=== PATIENT | male | born 1940 | race Caucasian/White ===

== ENCOUNTER 2016-12-03 02:11 | Emergency (ER) | payer OTHER ==
[~2016-12-03] VITALS: Ht 180.3 cm; Wt 88.0 kg
[~2016-12-03 02:11] MED LIST: FINA5TAB PO; LISI20TA3 PO; MELO15TA4 PO; MTR500 PO; MULT-506 PO; OMEG10007 PO; ZNTT/150 PO
[2016-12-03 02:15] VITALS: Ht 180.3 cm; Wt 88.0 kg
[2016-12-03] MEDS ORDERED: SODIUM CHLORIDE 0.9% 1000ML 1,000 ML IV STA (02:16)
[2016-12-03] MEDS ORDERED: PRAZ5CAP2 PO (02:18)
[2016-12-03] MEDS ORDERED: NITROGLYCERIN 0.4 MG SL PER TAB CHARGE ONE (02:22)
--- NOTE | 2016-12-03 02:25 | EMERGENCY ROOM VISIT NOTE ---
History Report prepared by Chichi: Chucky Fitzpatrick Under the Supervision of: Dr. Krysta Nunez M.D. First contact with patient: 02:10 Chief Complaint: CARDIAC ASSESSMENT Stated Complaint: CARDIAC ASSESSMENT History of Present Illness The patient is a 76 year old male who presents to the Emergency Room via [facility] with complaints of left sided neck pain that began roughly 30 minutes prior to arrival. EMS were called at 0141. Per EMS the patient was complaining of pain in the left side of the neck that was radiating up into the jaw, as well as pain in the bilateral upper back. He rated this pain as a 9/10 in severity. He did not have any chest pain or shortness of breath at anytime. The patient notes that he has had the pain intermittently for the past two days, but not to this severity. The patient has a history of hypertension and high cholesterol. He has no diabetic history. He received 4 baby Aspiring via EMS prior to arrival. 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 A total of 10 systems reviewed and were otherwise negative. Past Medical & Surgical Medical Problems: (1) Benign prostatic hypertrophy (2) Dyslipidemia (3) GERD (gastroesophageal reflux disease) (4) Hypertension Family History Alzheimer's disease FATHER Heart disease FATHER Hypertension BROTHER BROTHER Social History Smoking Status: Former Smoker Marital Status: Housing Status: lives with significant other Occupation Status: retired Current/Historical Medications Scheduled Fish Oil ([place]-3), 1,000 MG PO BID Lisinopril (Prinivil), 20 MG PO DAILY Meloxicam (Mobic), 15 MG PO DAILY Multivitamin (Multivitamin), 1 TAB PO DAILY Prazosin Hcl (Prazosin), 5 MG PO DAILY Ranitidine (Zantac), 150 MG PO BID Allergies Coded Allergies: Corticosteroids (Verified Allergy, Mild, 11/19/14) Physical Exam Vital Signs Date Time Temp Pulse Resp B/P Pulse Ox O2 Delivery O2 Flow Rate FiO2 12/03/16 04:25 81 16 140/60 94 Nasal Cannula 3 12/03/16 04:10 82 16 130/56 94 Nasal Cannula 3 12/03/16 03:55 83 16 142/60 94 Nasal Cannula 3 12/03/16 02:41 36.5 85 15 177/101 96 12/03/16 02:39 85 15 177/101 96 Nasal Cannula 2.0 12/03/16 02:32 90 15 158/110 97 Nasal Cannula 2.0 12/03/16 02:16 86 12/03/16 02:15 96 Room Air 12/03/16 02:15 36.5 86 20 185/109 96 Room Air 12/03/16 02:11 96 Room Air Physical Exam Vital signs reviewed. General: Critically ill appearing, in some distress. Noted to be markedly hypertensive. HEENT: No scleral icterus, PERRLA, neck supple. Atraumatic. Cardiovascular: Regular rate and rhythm, no extra sounds. Pulmonary: Clear to auscultation bilaterally, normal work of breathing. Abdomen: Soft, nontender, nondistended, positive bowel sounds. Musculoskeletal: Atraumatic, no peripheral edema. Extremities: Equal pulses in the bilateral lower extremities. Neurologic: Patient awake alert and oriented x 3, full strength in all 4 extremities. Cranial nerves 2 through 12 grossly intact. Skin: Warm, dry, no rash Medical Decision & Procedures ER Provider Diagnostic Interpretation: Radiology results as stated below per my review and radiologist interpretation: CTA CHEST: No evidence of pulmonary embolus. No thoracic aortic dissection or aneurysm. Centrilobular emphysema is noted. Dependent atelectasis. Coronary artery calcifications. Small hiatal hernia. The gallbladder is surgically absent. No acute osseous abnormality. Radiologist: Ryan Florian MD. Laboratory Results 12/03/16 02:03 Red Blood Count 4.72, Mean Corpuscular Volume 89.8, Mean Corpuscular Hemoglobin 32.8, Mean Corpuscular Hemoglobin Concent 36.6, Mean Platelet Volume 10.9, Neutrophils (%) (Auto) 44.0, Lymphocytes (%) (Auto) 42.7, Monocytes (%) (Auto) 8.4, Eosinophils (%) (Auto) 4.3, Basophils (%) (Auto) 0.4, Neutrophils # (Auto) 2.15, Lymphocytes # (Auto) 2.09, Monocytes # (Auto) 0.41, Eosinophils # (Auto) 0.21, Basophils # (Auto) 0.02 12/03/16 02:03 Test 12/03/16 02:03 12/03/16 02:14 12/03/16 03:27 White Blood Count 4.89 K/uL (4.8-10.8) Red Blood Count 4.72 M/uL (4.7-6.1) Hemoglobin 15.5 g/dL (14.0-18.0) Hematocrit 42.4 % (42-52) Mean Corpuscular Volume 89.8 fL (80-100) Mean Corpuscular Hemoglobin 32.8 pg (25-34) Mean Corpuscular Hemoglobin Concent 36.6 g/dl (32-36) Platelet Count 99 K/uL (130-400) Mean Platelet Volume 10.9 fL (7.4-10.4) Neutrophils (%) (Auto) 44.0 % Lymphocytes (%) (Auto) 42.7 % Monocytes (%) (Auto) 8.4 % Eosinophils (%) (Auto) 4.3 % Basophils (%) (Auto) 0.4 % Neutrophils # (Auto) 2.15 K/uL (1.4-6.5) Lymphocytes # (Auto) 2.09 K/uL (1.2-3.4) Monocytes # (Auto) 0.41 K/uL (0.11-0.59) Eosinophils # (Auto) 0.21 K/uL (0-0.5) Basophils # (Auto) 0.02 K/uL (0-0.2) RDW Standard Deviation 46.5 fL (36.4-46.3) RDW Coefficient of Variation 14.1 % (11.5-14.5) Immature Granulocyte % (Auto) 0.2 % Immature Granulocyte # (Auto) 0.01 K/uL (0.00-0.02) Platelet Estimate DECREASED Prothrombin Time 10.4 SECONDS (9.0-12.0) Prothromb Time International Ratio 1.0 (0.9-1.1) Activated Partial Thromboplast Time 26.4 SECONDS (21.0-31.0) Partial Thromboplastin Ratio 1.0 Est Creatinine Clear Calc Drug Dose 60.8 ml/min Estimated GFR () 75.2 Estimated GFR (Non- 64.9 BUN/Creatinine Ratio 16.4 (10-20) Calcium Level 8.8 mg/dl (8.5-10.1) Total Bilirubin 0.5 mg/dl (0.2-1) Direct Bilirubin 0.1 mg/dl (0-0.2) Aspartate Amino Transf (AST/SGOT) 30 U/L (15-37) Alanine Aminotransferase (ALT/SGPT) 30 U/L (12-78) Alkaline Phosphatase 92 U/L (45-117) Total Creatine Kinase 94 U/L (39-308) Creatine Kinase MB 6.3 ng/ml (0.5-3.6) Creatine Kinase MB Ratio 6.7 (0-3.0) Total Protein 7.5 gm/dl (6.4-8.2) Albumin 4.2 gm/dl (3.4-5.0) Bedside Hemoglobin 14.6 g/dl (14.0-18.0) Bedside Hematocrit 43 % (42-52) Bedside Sodium 141 mEq/L (135-144) Bedside Potassium 3.7 mEq/L (3.3-5.0) Bedside Chloride 104 mEq/L (101-112) Bedside Total CO2 23 mEq/l (24-31) Anion Gap 19.0 mmol/L (16-25) Bedside Blood Urea Nitrogen 19 mg/dl (7-18) Bedside Creatinine 0.9 mg/dl (0.6-1.3) Bedside Glucose (other) 134 mg/dl (70-99) Bedside Ionized Calcium (Mague) 1.22 mmol/l (1.12-1.32) Bedside Troponin I 0.580 ng/ml (0-0.045) Kaolin Activated Coagulation Time 286 SECONDS (94-140) Laboratory results per my review. Medications Administered Medications (Trade) Dose Ordered Sig/Suni Route Start Time Stop Time Status Last Admin Dose Admin Sodium Chloride (Nss 1000ml) 1,000 ml @ 125 mls/hr Q8H STAT IV 12/03/16 02:16 12/03/16 10:15 12/03/16 02:16 125 MLS/HR Heparin Sodium (Porcine) (Heparin Iv Bolus) 10,000 unit STK-MED ONCE .ROUTE 12/03/16 02:39 12/03/16 02:40 DC 12/03/16 02:39 8,000 UNIT Eptifibatide (Integrilin Inj) 40 mg STK-MED ONCE IV 12/03/16 03:11 12/03/16 03:12 DC 12/03/16 03:11 40 MG Eptifibatide (Integrilin Inj) 75 mg STK-MED ONCE IV 12/03/16 03:11 12/03/16 03:12 DC 12/03/16 03:11 75 MG Amiodarone HCL/ Dextrose (Nexterone / D5w) 150 mg STK-MED ONCE .ROUTE 12/03/16 03:14 12/03/16 03:15 DC 12/03/16 03:14 150 MG Amiodarone HCL/ Dextrose (Nexterone / D5w) 360 mg STK-MED ONCE .ROUTE 12/03/16 03:16 12/03/16 03:17 DC 12/03/16 03:16 360 MG ECG Indication: other (Back pain, jaw pain) Rate (beats per minute): 87 Rhythm: normal sinus Findings: ST elevation (Anterior), other (Inferior Reciprocal change) ED Course 0211: Past medical records reviewed. The patient was evaluated in room B1. A complete history and physical examination was performed. 0216: Ordered Sodium Chloride 1000 mL @ 125 mL/hr IV. 0215: Dr. Iniguez has come to see the patient at this time. We discussed the case and reviewed patient radiology studies. He will take the patient to the label paster. Medical Decision Differential diagnosis: Etiologies such as cardiac ischemia, aortic dissection, pulmonary embolism, pneumonia, pneumothorax, musculoskeletal, infections, pericarditis, myocarditis , esophageal rupture, gastrointestinal, as well as others were entertained. This patient was evaluated and appeared to be in significant discomfort. IV access was obtained and laboratory work was drawn. The patient was gently hydrated with normal saline solution. He complained mostly of back and neck pain. Patient has ST elevation on his EKG. He has hypertensive. Patient's troponin is positive. CT scan of the chest was performed to rule out aortic dissection. This study is as above, negative for dissection. Dr. Iniguez from interventional cardiology arrived to evaluate the patient. After reviewing images of the CT scan, he is agreed to take the patient to the catheterization lab for further evaluation. Patient is aware of the plan and agrees. Consults Time Called: 214 Consulting Physician: Dr. Iniguez - Cardiology Returned Call: [address] Dr. Iniguez has come to see the patient at this time. We discussed the case and reviewed patient radiology studies. He will take the patient to the label paster. Impression Primary Impression: Acute ST elevation myocardial infarction (STEMI) Critical Care I have personally spent greater than 30 minutes of critical care time in the direct management of this patient. This includes bedside care, interpretation of diagnostic studies, and testing, discussion with consultants, patient, and family members, and other required patient management activities. This 30 minutes is in excess of all separately billable procedures. Scribe Attestation The scribe's documentation has been prepared under my direction and personally reviewed by me in its entirety. I confirm that the note above accurately reflects all work, treatment, procedures, and medical decision making performed by me. Departure Information Dispostion Admitted as an inpatient Referrals Lorne Martin M.D. (PCP) Patient Instructions [facility] Problem Qualifiers Primary Impression: Acute ST elevation myocardial infarction (STEMI) Involved coronary artery: unspecified coronary artery Qualified Codes: I21.3 - ST elevation (STEMI) myocardial infarction of unspecified site
[2016-12-03 02:29] LABS: ISTAT CREATININE 0.9 mg/dl (0.6-1.3); ISTAT HEMOGLOBIN 14.6 g/dl (14.0-18.0); ISTAT IONIZED CALCIUM 1.22 mmol/l (1.12-1.32)
[2016-12-03 02:36] LABS: PROTHROMBIN TIME (PATIENT) 10.4 SECONDS (9.0-12.0)
[2016-12-03] MEDS ORDERED: FENTANYL CITRATE INJ 50 MCG/1 ML 2 ML VIAL ONE (02:39)
[2016-12-03] MEDS ORDERED: NiCARDipine HCL INJ 2.5 MG/ML 10 ML AMP ONE (02:39)
[2016-12-03] MEDS ORDERED: HEPARIN SOD (PORCINE) 1000 UNIT/ML 10 ML VIAL ONE (02:39)
[2016-12-03] MEDS ORDERED: MIDAZOLAM HCL 1 MG/ML 2ML VIAL ONE (02:39)
[2016-12-03 02:40] LABS: BUN/CREATININE RATIO 16.4 (10-20); CALCIUM 8.8 mg/dl (8.5-10.1); CREATININE 1.1 mg/dl (0.60-1.40); POTASSIUM 3.8 mmol/L (3.5-5.1)
[2016-12-03] MEDS ORDERED: NITROGLYCERIN/D5W 100MCG/ML 20ML SYR ONE (02:40)
[2016-12-03 02:41] VITALS: TEMP 36.5; O2SAT 96
[2016-12-03 02:45] LABS: CKMB/CK RATIO 6.7 (0-3.0); HEMATOCRIT 42.4 % (42-52); MEAN CELL VOLUME 89.8 fL (80-100); MEAN CORPUSCULAR HEMOGLOBIN 32.8 pg (25-34); MEAN CORPUSCULAR HGB CONC 36.6 g/dl (32-36); MEAN PLATELET VOLUME 10.9 fL (7.4-10.4); PLATELET COUNT 99 K/uL (130-400); RED BLOOD COUNT 4.72 M/uL (4.7-6.1); WHITE BLOOD COUNT 4.89 K/uL (4.8-10.8)
[2016-12-03 02:46] LABS: BASO % 0.4 %; BASO ABS # 0.02 K/uL (0-0.2); COMPLETE YES; EOS % 4.3 %; IG% 0.2 %; LYMPH % 42.7 %; LYMPH ABS # 2.09 K/uL (1.2-3.4); MONO % 8.4 %; PLT ESTIMATE DECREASED
[2016-12-03] MEDS ORDERED: OPTIRAY 320 IV PRN (03:00)
[2016-12-03] MEDS ORDERED: EPTIFIBATIDE 2 MG/ML 10 ML VIAL IV ONE (03:11)
[2016-12-03] MEDS ORDERED: EPTIFIBATIDE 0.75 MG/ML 75MG VIAL IV ONE (03:11)
[2016-12-03] MEDS ORDERED: AMIODARONE 150MG / 100ML D5W ONE (03:14)
[2016-12-03] MEDS ORDERED: AMIODARONE HCL INJ 50 MG/ML 3 ML VIAL ONE (03:14)
[2016-12-03] MEDS ORDERED: AMIODARONE 360MG / 200ML D5W ONE (03:16)
[2016-12-03 04:25] VITALS: BP 140/60; PULSE 81; O2SAT 94
--- NOTE | 2016-12-03 04:26 | Procedure Note ---
Pre-Mod Sedation Assessment General Date of Moderate Sedation: Dec 03, 2016. Vital Signs: Vital Signs Past 12 Hours Date Time Temp Pulse Resp B/P Pulse Ox O2 Delivery O2 Flow Rate FiO2 12/03/16 03:55 83 16 142/60 94 Nasal Cannula 3 12/03/16 02:41 36.5 85 15 177/101 96 12/03/16 02:39 85 15 177/101 96 Nasal Cannula 2.0 12/03/16 02:32 90 15 158/110 97 Nasal Cannula 2.0 12/03/16 02:16 86 12/03/16 02:15 96 Room Air 12/03/16 02:15 36.5 86 20 185/109 96 Room Air 12/03/16 02:11 96 Room Air Review Cardiovascular: regular rate, rhythm, no edema Abdomen: normal bowel sounds, non tender Lungs: chest non-tender, lungs clear Airway Class: III Pre-Sedation Airway Assessment Oral Cavity: WNL Able to Visualize Vocal Cords: No Short Thick Neck: No Hx of Sleep Apnea: No Smoking Status: Former Smoker Mallampati Classification: Class III ASA Classification: Class IV Procedure Planning Contraindications-for Mod Sed: None Yes Notes The planned sedation has been discussed with the patient and consent obtained. I have identified the patient, determined the appropriateness of sedation and have assessed the patient immediately prior to the procedure. All medicine(s) and interventions are by my order.
--- NOTE | 2016-12-03 04:27 | Procedure Note ---
Post-Mod Sedation Assessment General Date of Moderate Sedation Dec 03, 2016. Vital Signs: Vital Signs Past 12 Hours Date Time Temp Pulse Resp B/P Pulse Ox O2 Delivery O2 Flow Rate FiO2 12/03/16 03:55 83 16 142/60 94 Nasal Cannula 3 12/03/16 02:41 36.5 85 15 177/101 96 12/03/16 02:39 85 15 177/101 96 Nasal Cannula 2.0 12/03/16 02:32 90 15 158/110 97 Nasal Cannula 2.0 12/03/16 02:16 86 12/03/16 02:15 96 Room Air 12/03/16 02:15 36.5 86 20 185/109 96 Room Air 12/03/16 02:11 96 Room Air Review - Discharge Criteria Vital Signs Stable: Yes Alert/Oriented/Conversant: Yes Returned to Baseline Mental St: Yes Nausea Absent/Minimal: Yes Pain/Discomfort/Absent/Minimal: Yes Normal/Baseline Respirations: Yes Active Bleeding?: No Pt Received D/C Instructions: N/A Prescriptions Given: None Specific Proced. D/C Criteria Distal Pulses Present (Cardiac: Yes Groin site assessed-Card Cath: N/A Voided Prior To Discharge: N/A Discharged Patients Adult Escort/Transportation: Yes
--- NOTE | 2016-12-03 04:53 | Cardiac Catheterization ---
Procedure Note Procedure Date Dec 03, 2016. Pre-Procedure Diagnosis STEMI AUC Score 9 Post-Procedure Diagnosis Severe CAD, Successful PCI, Normal Intracardiac Pressures Procedure(s) Performed Coronary Angiography, Left Heart Cath, PTCA Adjuster Dr. Iniguez Cable Tv Installer(s) Santiago Estimated Blood Loss 20 Medication(s) Heparin, Integrilin, Nitroglycerin, Lidocaine 1% Amiodarone Summary of Findings Indication: STEMI/Heart Alert Access: 6Fr Right Radial Artery Catheters: Ikari 3.5, JR 4 diagnostic Findings: LM - 95% distal left main stenosis involving trifurcation with LAD, ramus, circumflex LAD - Proximal LAD aneurysmal after LM/ostial LAD stenosis. 100% occluded in proximal segment. 95% stenosis in mid segment after 2nd diagonal. 1st diagonal with 70-80% ostial stenosis. Ramus - Ostial involvement of left main stenosis, remainder of vessel is moderate caliber with distal luminal irregularities Circumflex - Ostial involvement of left main stenosis, remainder of vessel is large caliber with distal luminal irregularities. Mild proximal small OM1 disease. OM2 with luminal irregularities. RCA - Dominant, large caliber vessel, 80% stenosis in mid segment. 30-40% stenosis in ostial PDA. LVEDP - 13 -- PCI -- Antithrombotic therapy: Heparin, Integrilin Procedure: LM cannulated with Ikari 3.5 guide BMW wire passed across lesion into distal LAD Prowater wire passed across left main lesion into Ramus LM and proximal LAD lesions predilated with 2.5 compliant balloon. With initial flow patient noted to be be in an accelerated idioventricular rhythm to 120s --> started on amiodarone. Mid LAD predilated with 2.0 compliant balloon LM into ramus and LM into proximal LAD dilated with 3.0 compliant balloon sequentially Post procedure ROCIO 3 flow, chest pain free, ST elevations less pronounced. 50- 60% residual stenosis in distal LM/ostial LAD. Arterial Closure: TR Band Summary: 1. Anterior STEMI 2. Severe multivessel coronary artery disease with distal left main/ trifurcation involvement - Distal LM 95% - Proximal LAD 100% - Mid LAD 95% - Mid RCA 80% 3. Normal intracardiac filling pressure 4. Successful PTCA of left main, proximal to mid LAD with re-established ROCIO 3 flow and resolution of chest pain. Recommendations: With severe, complex distal left main disease feel patient would be best served long-term with bypass surgery. Discussed case with Dr. Santos (Interventional Cardiology) and Dr. Singh ( CT Surgery) at [facility]. They have agreed to accept the patient and tentative plan for bypass later today. Will transfer patient by air from laborer construction or leak gang. At time of transfer patient hemodynamically, electrically stable and chest pain free. Continue integrilin, amiodarone en route. Hemodynamics Rest Ao: 154/86 Final Ao: 148/78 LV: 136/13 Recommendations PCI without planned CABG Specimens None Radiation Exposure (mGy) 2962 Contrast (mls) 150 Fluids (cc crystalloids) 120 Drains none Anesthesia moderate Procedural Complication(s) None Disposition [facility] for CT surgery ACC Data Cardiac Status Clinical evaluation leading to the procedure CAD Presntation: STEMI STEMI or Non-STEMI: Symptom Onset Date/Time: 2:00 Anginal Classification: CCS IV Heart Failure: No, NYHA Class: CCS I Cardiogenic Shock w/in 24Hrs: No Cardiac Arrest w/in 24Hrs: No Imaging studies past 6 months: No Stress studies past 6 months: No Standard Exercise Stress Test: No Stress Echocardiogram: No Stress Testing w/SPECT MPI: No Cardiac CTA: No Coronary Anatomy Dominant: Right Left Main (% Stenosis): Distal (95) LAD (% Stenosis): Proximal (100), Mid (95) D1 (% Stenosis): Ostial (70) RCA (% Stenosis): Mid (80) R PDA (% Stenosis): Ostial (30) Ramus (% Stenosis): Ostial (95) Diagnostic Physician's Name: Jamie Iniguez MD Status: Emergency Closure Device Percutaneous Entry Location: Radial Closure Device: Radial Band Recommendations: CABG PCI Indication: Immediate PCI for STEMI First Noted: First EKG Subsequent EKG Date/Time: 2:12 Lesion Segment Name: LM/Proximal LAD Culprit Artery: Yes Stenosis Prior to Rx (%): 100 Chronic Total Occlusion: No IVUS: No FFR: No Previously Treated Lesion: No Lesion Complexity: High/C Lesion Length (mm): 25 Thrombus Present: Yes Bifurcation Lesion: Yes Guidewire Across Lesion: Yes Guidewire: Stenosis Post-Procedure (%): 50 Post-Procedure ROCIO Flow: 3 Device(s) Deployed: No Intraprocedure Events Significant Dissection: No Perforation: No
--- NOTE | 2016-12-03 07:30 | DIAGNOSTIC IMAGING REPORT ---
CHEST CTA for AORTIC DISSECTION CT DOSE: 777.00 mGy.cm HISTORY: Chest pain. TECHNIQUE: Multiaxial CT images of the chest were performed both before and after the intravenous administration of contrast to evaluate the aorta. Maximal intensity projection images were also obtained. COMPARISON STUDY: Chest 10/12/2013. Chest CT 01/13/2008. FINDINGS: No evidence for an aortic dissection. The ascending thoracic aorta measures up to 4 cm in diameter. The central pulmonary arteries are patent. No pleural or pericardial effusions. No mediastinal or hilar lymphadenopathy. Tiny hiatus hernia. Cholecystectomy. No hepatic or splenic masses. A 6 mm left adrenal gland nodule. Normal right adrenal gland. No fractures within the visualized osseous structures. No pneumothorax. Moderate emphysema. Respiratory motion artifact. Mild interstitial thickening at the lung bases. Mild interlobular septal thickening. IMPRESSION: 1. No evidence for an aortic dissection. 2. Mild interlobular septal thickening. This may represent developing pulmonary edema. 3. Emphysema. 4. The ascending thoracic aorta measures up to 4 cm diameter, unchanged. Electronically signed by: Clem Dixon M.D. 12/03/2016 7:28 AM Dictated Date/Time: 12/03/2016 7:22 AM
== END 2016-12-03 02:41 | disposition admitted as inpatient to this hospital (09) ==
LOC: C.EDB 02:11
DX: I21.3 ST elevation (STEMI) myocardial infarction of unspecified site (principal); I25.10 Atherosclerotic heart disease of native coronary artery without angina pectoris; N40.0 Benign prostatic hyperplasia without lower urinary tract symptoms; E78.5 Hyperlipidemia, unspecified; I10 Essential (primary) hypertension; K21.9 Gastro-esophageal reflux disease without esophagitis; Z87.891 Personal history of nicotine dependence; Z79.82 Long term (current) use of aspirin

== ENCOUNTER → 2017-06-30 | Outpatient (CLI) | payer OTHER ==
[~2017-06-30] MED LIST changes: -FINA5TAB PO; -MTR500 PO; +PRAZ5CAP2 PO
--- NOTE | 2017-06-30 18:20 | ECHOCARDIOGRAM REPORT ---
*NOTICE TO RECEIVING DEMOCRAT AGENCY This information is strictly Confidential and protected under [place] law. [place] law prohibits you from making any further disclosure of this information unless further disclosure is expressly permitted by the written consent of the person to whom it pertains or is authorized by law. A general authorization for the release of medical or other information is not sufficient for this purpose. Hospital accepts no responsibility if the information is made available to any other person, INCLUDING THE PATIENT. Interpretation Summary * Name: RIGOBERTO PELAEZ Study Date: 06/30/2017 12:48 PM * Patient Location: [facility] * : 1940 (M/d/yyyy) Gender: Male Height: 72 in * Age: 76 yrs Ethnicity: CA Weight: 180 lb * Ordering Physician: Jamie Arreaga * Referring Physician: Jamie Arreaga * Performed By: Kristin العلي RDCS * * Reason For Study: STEMI * BSA: 2.0 m2 * -- Conclusions -- * 1. Top-normal left ventricular size with mildly reduced systolic function. Estimated EF 45%. Hypokinesis of the anteroseptum, distal septum, and distal inferior wall. The basal septum and basal to mid inferior wall segments appear to be akinetic. No left ventricular hypertrophy. * 2. The left atrium is mildly dilated. * 3. There is mild mitral regurgitation. * 4. Mild aortic root dilatation. * 5. Technically difficult study, enhanced with IV Definity. * 6. Normal estimated right ventricular systolic pressure; 34 mmHg. * 7. Compared to prior study on 10/12/2013, LV systolic function is now mildly reduced with wall motion abnormalities as described. Procedure Details * A contrast injection of Definity was performed to improve assessment of LV function. * Contrast was injected into an intravenous site in the left arm. * One vial of Definity ultrasound contrast was diluted in normal saline to a total volume of 10 ml. A total of '2' ml of solution was administered during imaging. * Lot # [id number] of Definity utilized for procedure. * Expiration date AUG 04. * The attending nurse who injected the contrast agent was LEESA GARCIA RN. Left Ventricle * Top-normal left ventricular size with mildly reduced systolic function. Estimated EF 45%. Hypokinesis of the anteroseptum, distal septum, and distal inferior wall. The basal septum and basal to mid inferior wall segments appear to be akinetic. No left ventricular hypertrophy. Right Ventricle * The right ventricle is normal in size and function. * The right ventricular systolic function is normal as assessed by tricuspid annular plane systolic excursion (TAPSE) (normal >1.5 cm). Atria * The left atrium is mildly dilated. * Right atrial size is normal. * There is no evidence of atrial septal defect, but resolution does not allow assessment for a patent foramen ovale. Mitral Valve * The mitral valve is grossly normal. * There is no mitral valve stenosis. * There is mild mitral regurgitation. Tricuspid Valve * The tricuspid valve is not well visualized, but is grossly normal. * There is no tricuspid stenosis. * There is mild tricuspid regurgitation. Aortic Valve * The aortic valve is trileaflet. * Aortic valve sclerosis mild, without significant aortic valvular stenosis. * No hemodynamically significant valvular aortic stenosis. * Trace aortic regurgitation. Pulmonic Valve * The pulmonary valve is inadequately visualized, but the Doppler data is adequate for interpretation. * There is no pulmonic valvular stenosis. * There is no significant pulmonary regurgitation. Great Vessels * Mild aortic root dilatation. * Mildly blunted pulmonary venous flow pattern. Pericardium/Pleural * There is no pericardial effusion. Great Vessels * Normal inferior vena cava size and collapsability with sniff indicates a normal right atrial pressure of 3 mmHg Left Ventricular Diastolic Function * Type 2 diastolic dysfunction. MMode 2D Measurements and Calculations IVSd 0.97 cm IVSs 1.3 cm LVIDd 5.1 cm LVIDs 4.0 cm LVPWd 1.1 cm LVPWs 1.8 cm IVS/LVPW 0.87 FS 21.6 % EDV(Teich) 125.6 ml ESV(Teich) 70.9 ml EF(Teich) 43.6 % EDV(cubed) 135.1 ml ESV(cubed) 65.0 ml EF(cubed) 51.9 % % IVS thick 35.5 % % LVPW thick 56.7 % LV mass(C)d 201.5 grams LV mass(C)dI 98.9 grams/m\S\2 LV mass(C)s 243.0 grams LV mass(C)sI 119.3 grams/m\S\2 SV(Teich) 54.7 ml SI(Teich) 26.9 ml/m\S\2 SV(cubed) 70.1 ml SI(cubed) 34.4 ml/m\S\2 Ao root diam 4.6 cm Ao root area 16.4 cm\S\2 LA dimension 4.1 cm LA/Ao 0.90 LVAd ap4 35.3 cm\S\2 LVLd ap4 9.2 cm EDV(MOD-sp4) 116.8 ml EDV(sp4-el) 114.3 ml LVAs ap4 24.4 cm\S\2 LVLs ap4 7.7 cm ESV(MOD-sp4) 67.1 ml ESV(sp4-el) 65.5 ml EF(MOD-sp4) 42.6 % EF(sp4-el) 42.8 % LVAd ap2 35.7 cm\S\2 LVLd ap2 8.5 cm EDV(MOD-sp2) 127.4 ml EDV(sp2-el) 127.7 ml LVAs ap2 23.7 cm\S\2 LVLs ap2 7.1 cm ESV(MOD-sp2) 72.0 ml ESV(sp2-el) 66.8 ml EF(MOD-sp2) 43.5 % EF(sp2-el) 47.7 % LVLd %diff -8.71 % EDV(MOD-bp) 127.8 ml LVLs %diff -7.71 % ESV(MOD-bp) 72.4 ml EF(MOD-bp) 43.3 % SV(MOD-sp4) 49.7 ml SI(MOD-sp4) 24.4 ml/m\S\2 SV(MOD-sp2) 55.4 ml SI(MOD-sp2) 27.2 ml/m\S\2 SV(MOD-bp) 55.4 ml SI(MOD-bp) 27.2 ml/m\S\2 SV(sp4-el) 48.9 ml SI(sp4-el) 24.0 ml/m\S\2 SV(sp2-el) 60.9 ml SI(sp2-el) 29.9 ml/m\S\2 Doppler Measurements and Calculations MV E max sheryl 83.4 cm/sec MV A max sheryl 30.1 cm/sec MV E/A 2.8 MV dec time 0.14 sec Ao V2 max 106.0 cm/sec Ao max PG 4.5 mmHg Ao max PG (full) 2.4 mmHg LV V1 max PG 2.1 mmHg LV V1 max 72.3 cm/sec TR max sheryl 279.8 cm/sec RVSP(TR) 34.3 mmHg RAP systole 3.0 mmHg
== END | disposition home or self-care (01) ==
LOC: C.CPL 12:42
PROVIDERS: ATTEND Internal Medicine Clinical Cardiac Electrophysiology
DX: I21.3 ST elevation (STEMI) myocardial infarction of unspecified site (principal); I34.0 Nonrheumatic mitral (valve) insufficiency; I77.810 Thoracic aortic ectasia

== ENCOUNTER 2024-02-27 20:02 | Inpatient (IN) ==
--- NOTE | 2024-02-27 20:15 | Emergency Department Note ---
Impression & Plan Dementia ED Provider Note Provider: Abel Cruz MD DATE OF SERVICE: 02/27/2024 CHIEF COMPLAINT: Aggressive outbursts, confusion HISTORY OF PRESENT ILLNESS: Patient is a 83-year-old gentleman unfortunate history of dementia, CAD, CKD, and hypertension presenting here today via ambulance from his home. Patient evidently was being aggressive and having outbursts and due to concerns for his safety and the safety of others was brought here for further evaluation. Patient himself unable to give me a good history of what been happening. States he was at work today and thinks it is 2019 but it takes him some time to come up with this date. Reports he lives with his but denies any significant pain. Denies any significant altercations or hallucinations to me. I will write me a lot of details regarding events of today. EMS report that he was having some outburst send he was brought here for further evaluation. Discussed with his friend Claritza who has been living with locally for the past 5 years the situation. She reports he has been declining some for the last several months but particularly today was not himself and was out of sorts. Reports he threatened to walk out and she could not redirect him and she was concerned that he would do something unsafe and she is also 85 and does not feel she can care for him at home. Does that patient's family who lives several hours away have been trying to work on possible memory care placement. She did contact them and they wish for him to be sent to the hospital and cared for until placement can be obtained. PAST MEDICAL HISTORY: As noted above MEDICATIONS: Reviewed home medications SOCIAL HISTORY: Has been living with his friend Claritza PHYSICAL EXAM: GENERAL: alert and oriented to person but not time or events in no acute distress on stretcher. Describes after some time that it might be 2019 and states that he still working Head: normocephalic and atraumatic EYES: No injection, discharge or icterus. PERRL, EOMI. NECK: Trachea midline. Supple. ENT: Mucous membranes pink and moist. Pharynx without erythema or exudate. LUNGS: Airway patent. No retractions. Breath sounds clear with good air entry bilaterally. HEART: Regular rate and rhythm. No chest wall tenderness ABDOMEN: Soft and non-tender, without guarding or rebound. SKIN: Acyanotic, warm, dry, without rashes with occasional upper extremity contusions noted. EXTREMITIES: Without tenderness with 1+ bilateral lower extremity edema without erythema NEUROLOGICAL: No focal deficits. No aphasia. No facial droop or slurred speech. Normal strength and tone in the extremities. Sensation to gross touch normal. Ambulatory. EK bpm normal sinus rhythm. No PVC or PAC. No acute ST segment elevation or depression with some nonspecific T wave changes. QTc 433. CONTINUOUS CARDIAC MONITORING: was ordered and showed a heart rate of 60s bpm in normal sinus rhythm Patient's laboratory studies and imaging reviewed. Differential includes Infection, dehydration, metabolic abnormality, hypo/hyperglycemia, electrolyte disturbance, anemia, hypoxia, cardiac sources, intracerebral event, toxicologic, neurologic, as well as other pathologies. IMPRESSION/MEDICAL DECISION MAKING: Patient denies complaint. History of dementia and oriented to person and birthday but not able to really tell me recent events and confabulating on exam. No trauma history. Additional history from patient's caregiver Claritza/friend who has been living with. Basic blood work EKG and head imaging obtained today given the confusion although seems like possibly more of worsening of his underlying dementia. Blood work here with mild anemia stable from previous but some slightly new leukopenia and thrombocytopenia today. Chemistries here without significant electrolyte abnormality or renal dysfunction. Normal TSH and negative COVID testing. Chest x-ray per radiology question some emphysema and pulmonary vascular congestion with scarring of the lungs. No acute emergent abnormality noted. Given his living conditions and decline with what appears to be more dementia mediated although urinalysis is pending will bring into the hospital for placement. Hospitalist contacted. DIAGNOSIS: Dementia, behavioral disturbance DISPOSITION: Hospitalist will evaluate Past Med/Surg History Problem List (Updated 02/27/24 @ 22:15 by Abel Cruz M.D.) Other stressful life events affecting family and household Hypoxia Dyspnea Pleural effusion, left Dementia (Acute) Medicare annual wellness visit, subsequent Ascending aortic aneurysm (Acute) CAD (coronary artery disease) (Chronic) CKD (chronic kidney disease), stage III (Chronic) Generalized osteoarthritis (Acute) Gout (Acute) Obesity (Acute) Thrombocytopenia (Acute) Hypertension (Chronic) Dyslipidemia (Chronic) Benign prostatic hypertrophy (Chronic) GERD (gastroesophageal reflux disease) (Chronic) Orthostatic hypotension (Acute) Medical History History of ST elevation myocardial infarction (STEMI) Stress hyperglycemia Syncope (10/11/13) Surgical History History of cholecystectomy History of colonoscopy (~2007) Hx of CABG (~2016) Family History Brother Hx of CABG Hypertension Father Coronary heart disease Myocardial infarction Mother Coronary heart disease Myocardial infarction Denies family history of Ovarian cancer Prostate cancer Breast cancer Colorectal cancer Social History Smoking Status: Unknown if ever smoked Age Started Using Tobacco: 14; Age Quit Using Tobacco: 49; packs per day: 2; Cigarettes Per Day: 40; Second Hand Exposure: No; Do You Dip or Chew Tobacco: No; Hx Alcohol Use: No Hx Substance Use: No Preferred Language: Japanese Visual Impairment: No Limitations Hearing Ability: Use of Hearing Aid News Production Assistant Required: No Beliefs That Will Affect Care: None marital status: / Current Living Situation: Spouse current occupational status: retired Feels Safe at Home: Yes Childhood Exposure to Second-Hand Smoke: Yes Diet: regular caffeine: Yes Dental Care, Regularly: No Physical Activity Frequency: Daily Seatbelt Use: always Sunscreen Use: Yes Allergies Allergies Allergy/AdvReac Type Severity Reaction Status Date / Time aspirin Allergy Unknown Unknown Verified 02/27/24 21:12 Corticosteroids Allergy Unknown Unknown Verified 02/27/24 21:12 (Glucocorticoids) [id number] Reductase AdvReac Unknown Unknown Verified 02/27/24 21:12 Inhibitor Home Meds Home Medications Medication Instructions Recorded Confirmed acetaminophen 500 mg tablet 1,000 mg PO Q8H PRN Pain 07/07/19 02/27/24 (Tylenol Extra Strength) aspirin 81 mg tablet,delayed 81 mg PO DAILY 07/07/19 02/27/24 release (Adult Low Dose Aspirin) multivitamin 1 tab PO DAILY 07/07/19 02/27/24 prazosin 5 mg capsule 5 mg PO QPM 07/07/19 02/27/24 atorvastatin 40 mg tablet 20 mg PO DAILY 11/21/23 02/27/24 cholecalciferol (vitamin D3) 25 25 mcg PO DAILY 11/21/23 02/27/24 mcg (1,000 unit) capsule lisinopril 20 mg tablet 40 mg PO DAILY 11/21/23 02/27/24 Previous Rx's Medication Instructions Recorded Oxygen Home #2 L 12/04/23 famotidine 40 mg tablet 40 mg PO DAILY #90 tabs 01/14/24 metoprolol succinate 50 mg 50 mg PO DAILY #90 tabs 01/26/24 tablet,extended release 24 hr Results & Data (ED) Vital Signs Vital Signs - 24 hr 02/27/24 20:22 02/27/24 20:34 02/27/24 20:34 Temperature 36.8 C Temperature Source Oral Pulse Rate Pulse Rate [Apical] 73 Respiratory Rate 15 Blood Pressure [Right Arm] 193/73 H Blood Pressure Mean [Right Arm] 113 Pulse Oximetry 97 97 Oxygen Delivery Method Room Air Room Air Sepsis Recent Fever Within 48 Hours No Sepsis New/Unexplained Change in Mental Status No Sepsis Action Taken by Nursing No Action Required 02/27/24 20:35 02/27/24 22:10 Temperature Temperature Source Pulse Rate 62 Pulse Rate [Apical] 64 Respiratory Rate 20 Blood Pressure [Right Arm] 172/90 H Blood Pressure Mean [Right Arm] 117 Pulse Oximetry 95 Oxygen Delivery Method Room Air Sepsis Recent Fever Within 48 Hours Sepsis New/Unexplained Change in Mental Status Sepsis Action Taken by Nursing Laboratory Data 02/27/24 20:20 02/27/24 20:20 Lab Results 02/27/24 02/27/24 Range/Units 20:20 20:31 WBC 4.29 L (4.8-10.8) K/ul RBC 3.68 L (4.70-6.10) M/uL Hgb 11.4 L (14.0-18.0) g/dl Hct 34.0 L (42.0-52.0) % MCV 92.4 (80.0-100.0) fL MCH 31.0 (25.0-34.0) pg MCHC 33.5 (32.0-36.0) g/dL RDW Std Deviation 52.8 H (36.4-46.3) fL RDW Coeff of Lucho 15.7 H (11.5-14.5) % Plt Count 109 L (130-400) K/uL MPV 12.4 (9.4-12.4) fL Immature Gran % (Auto) 0.9 % Neut % (Auto) 64.3 % Lymph % (Auto) 14.5 % Colbert % (Auto) 15.2 % Eos % (Auto) 4.4 % Baso % (Auto) 0.7 % Neut # (Auto) 2.76 (1.40-6.50) K/uL Lymph # (Auto) 0.62 L (1.20-3.40) K/uL Colbert # (Auto) 0.65 H (0.11-0.59) K/uL Eos # (Auto) 0.19 (0.00-0.50) K/uL Baso # (Auto) 0.03 (0.00-0.20) K/uL Immature Gran # (Auto) 0.04 (0.01-0.20) K/uL Sodium 139 (136-145) mmol/L Potassium 3.6 (3.5-5.1) mmol/L Chloride 106 (98-107) mmol/L Carbon Dioxide 26 (21-32) mmol/L Anion Gap 7 (3-11) BUN 14 (6-23) mg/dl Creatinine 1.10 (0.6-1.4) mg/dl Est Cr Clr Drug Dosing 52.5 ml/min Est GFR ( Amer) 71.6 ml/min Est GFR (Non-Af Amer) 61.8 ml/min BUN/Creatinine Ratio 12.7 (10-20) Glucose 101 H (70-99(Fasting)) mg/dl Calcium 9.6 (8.6-10.3) mg/dl Total Bilirubin 0.8 (0.2-1.0) mg/dl AST 22 (13-39) U/L ALT 12 (7-52) U/L Alkaline Phosphatase 86 (34-104) U/L Total Protein 7.6 (6.0-8.3) gm/dl Albumin 4.5 (3.4-5.0) gm/dl Globulin 3.1 (2.5-4.0) gm/dl Albumin/Globulin Ratio 1.5 (0.9-2) TSH 1.301 (0.300-4.500) uIu/ml SARS-CoV-2, RNA, NAAT NEGATIVE (NEGATIVE) Imaging Data Radiologist's Impression: Chest X-Ray 02/27/24 20:10 SINGLE VIEW CHEST CLINICAL HISTORY: Change in mental status. FINDINGS: An AP, portable, upright chest radiograph is compared to study dated 12/09/2023 and correlated with chest CT dated 12/03/2016. The patient is status post midline sternotomy. The heart is enlarged. There is pulmonary vascular congestion. Emphysema and chronic interstitial thickening is similar to previous. Scarring/atelectasis is noted at both lung bases. A focus of nodularity at the right lung base is similar to 12/09/2023 examination. There is a scarlike opacity at the left apex. No large pleural effusion or pneumothorax is seen. The skeletal structures are osteopenic. The bony thorax is grossly intact. IMPRESSION: 1. Cardiomegaly and emphysema with pulmonary vascular congestion. 2. Foci of scarring/nodularity are again seen at the left apex as well as the right lung base. Correlation with a chest CT is recommended for further assessment. ACT 112: Negative or not required by law. Electronically signed by: Jose Manuel Lizama M.D. 02/27/2024 9:[address] 02/27/24 20:10 Exam(s): CT HEAD Without Contrast EXAM: CT Head Without Intravenous Contrast CLINICAL HISTORY: Reason for exam: confusion. TECHNIQUE: Axial computed tomography images of the head/brain without intravenous contrast. CTDI is 62.75 mGy and DLP is 1098.96 mGy-cm. Automated exposure control was utilized for the study. A dose lowering technique was utilized adhering to the principles of ALARA. COMPARISON: No relevant prior studies available. FINDINGS: Brain: Unremarkable. No hemorrhage. Moderate nonspecific white matter changes. No edema. Prominent pituitary gland with convex superior margin measuring 9.9 mm in height concerning for underlying adenoma. Ventricles: Moderate ventriculomegaly. Bones/joints: Unremarkable. No acute fracture. Soft tissues: Unremarkable. Sinuses: Unremarkable as visualized. No acute sinusitis. Mastoid air cells: Unremarkable as visualized. No mastoid effusion. IMPRESSION: No evidence of acute intracranial pathology. Electronically signed by: Veronica Lozoya MD 02/27/24 23:19 PM Discharge Plan Visit Data Chief Complaint: Illness Stated Complaint: [facility] ED Provider: Abel Cruz Discharge Problem: Dementia Patient Disposition: Being Evaluated by Hospitalist Forms Stand Alone Forms: My [facility] [employer] Prescriptions Prescriptions: No Action metoprolol succinate 50 mg tablet extended release 24 hr 50 mg PO DAILY Qty: 90 3RF aspirin [Adult Low Dose Aspirin] 81 mg tablet,delayed release (DR/EC) 81 mg PO DAILY multivitamin tablet 1 tab PO DAILY prazosin 5 mg capsule 5 mg PO QPM acetaminophen [Tylenol Extra Strength] 500 mg tablet 1,000 mg PO Q8H PRN (Reason: Pain) atorvastatin 40 mg tablet 20 mg PO DAILY (DME) Oxygen Home Liters Per Minute See Rx Instructions .ROUTE .MEDSUPPLY Qty: 2 0RF Rx Instructions: 2 l via nc at all times lisinopril 20 mg tablet 40 mg PO DAILY cholecalciferol (vitamin D3) 25 mcg (1,000 unit) capsule 25 mcg PO DAILY famotidine 40 mg tablet 40 mg PO DAILY Qty: 90 3RF Referrals Referrals: Tony Bella DO [Primary Care Provider] -
[2024-02-27 20:35] LABS: Basophils # (auto) 0.03 K/uL (0.00-0.20); Basophils % (auto) 0.7 %; Eosinophils # (auto) 0.19 K/uL (0.00-0.50); Eosinophils % (auto) 4.4 %; Hemoglobin 11.4 g/dl (14.0-18.0); Immature Granulocytes # (auto) 0.04 K/uL (0.01-0.20); Immature Granulocytes % (auto) 0.9 %; Lymphocytes # (auto) 0.62 K/uL (1.20-3.40); Lymphocytes % (auto) 14.5 %; Mean Corpuscular Hgb Conc 33.5 g/dL (32.0-36.0); Mean Corpuscular Volume 92.4 fL (80.0-100.0); Mean Platelet Volume 12.4 fL (9.4-12.4); Monocytes # (auto) 0.65 K/uL (0.11-0.59); Monocytes % (auto) 15.2 %; Neutrophils # (auto) 2.76 K/uL (1.40-6.50); Neutrophils % (auto) 64.3 %; Platelet Count 109 K/uL (130-400); RDW Coefficient of Variation 15.7 % (11.5-14.5); RDW Standard Deviation 52.8 fL (36.4-46.3); Red Blood Count 3.68 M/uL (4.70-6.10); White Blood Count 4.29 K/ul (4.8-10.8)
[2024-02-27 20:57] LABS: Albumin Globulin Ratio 1.5 (0.9-2); Albumin Level 4.5 gm/dl (3.4-5.0); BUN Creatinine Ratio 12.7 (10-20); Bilirubin,Total 0.8 mg/dl (0.2-1.0); Calcium 9.6 mg/dl (8.6-10.3); Creatinine Clr Calc Pharmacy 52.5 ml/min; Est GFR (African American) 71.6 ml/min; Est GFR (Non-African American) 61.8 ml/min; Globulin 3.1 gm/dl (2.5-4.0); Potassium 3.6 mmol/L (3.5-5.1); Total Protein 7.6 gm/dl (6.0-8.3)
[2024-02-27 21:11] LABS: Thyroid Stimulating Hormone 1.301 uIu/ml (0.300-4.500)
--- NOTE | 2024-02-27 21:23 | XRay Report ---
SINGLE VIEW CHEST CLINICAL HISTORY: Change in mental status. FINDINGS: An AP, portable, upright chest radiograph is compared to study dated 12/09/2023 and correlat ed with chest CT dated 12/03/2016. The patient is status post midline sternotomy. The heart is enlarge d. There is pulmonary vascular congestion. Emphysema and chronic interstitial thickening is similar t o previous. Scarring/atelectasis is noted at both lung bases. A focus of nodularity at the right lung base is similar to 12/09/2023 examination. There is a scarlike opacity at the left apex. No large ple ural effusion or pneumothorax is seen. The skeletal structures are osteopenic. The bony thorax is jasmeet ssly intact. IMPRESSION: 1. Cardiomegaly and emphysema with pulmonary vascular congestion. 2. Foci of scarring/nodularity are again seen at the left apex as well as the right lung base. Correl ation with a chest CT is recommended for further assessment. ACT 112: Negative or not required by law. Electronically signed by: Jose Manuel Lizama M.D. 02/27/2024 9:21 PM
--- NOTE | 2024-02-27 22:35 | History & Physical Report ---
Date of Service February 27, 2024 Assessment & Plan (1) Confusion: Plan: 83yo male with reported increase in agitation and confusion. Patient is pleasant during my encounter, no complaints. Labs are largely unremarkable with exception of new leukopenia and thrombocytop enia. CT of the head is unremarkable UA is pending -Observation to medical -Frequent orientation, delirium prevention strategies -Maintain fall precautions and aspiration precautions -Check Mg and PO4 -Await UA results -PT/OT evaluation Plan Chronic Medical Issues: Hypertension - patient with elevated blood pressure currently -Continue Metoprolol 50mg po daily -Continue Lisinopril 40mg po daily -Monitor Hyperlipidemia - chronic. stable -Continue Atorvastatin BPH - chronic. stable -Continue Prazosin -Bladder scan with straight cath PRN GERD - chronic. stable -Continue Pepcid 40mg po daily F/E/N - Saline lock. Check electrolytes and replete as needed. Regular diet as tolerated with aspiration precautions Ppx - SCDs to bilateral LE Code- Full - unable to reach POC Claritza. No prior Code Status available. Should be revisited in the AM Dispo -Observation to medical History of Present Illness Chief Complaint: agitation Primary Care Provider: Tony Bella DO Sohan Armenta is a pleasant 83yo male with history of CAD, HTN, HLP, GERD, CKD and Dementia presenting from home with report of increased agitation and aggression. Patient lives with his friend, Claritza, in a home. She brought him in today due to reported increased agitation. During my encounter patient with no acute complaints. He does not know why he is here in the hospital. He does not recall becoming confused. He is oriented to person and place but not to date. 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 ER Course: Prazosin 5mg po Allergies Allergy/AdvReac Type Severity Reaction Status Date / Time aspirin Allergy Unknown Unknown Verified 02/27/24 21:12 Corticosteroids Allergy Unknown Unknown Verified 02/27/24 21:12 (Glucocorticoids) Nrgmymf-AJG-SnC Reductase AdvReac Unknown Unknown Verified 02/27/24 21:12 Inhibitor Home Medications Medication Instructions Recorded Confirmed Type acetaminophen 500 mg tablet 1,000 mg PO Q8H PRN Pain 07/07/19 02/27/24 History (Tylenol Extra Strength) aspirin 81 mg tablet,delayed 81 mg PO DAILY 07/07/19 02/27/24 History release (Adult Low Dose Aspirin) multivitamin 1 tab PO DAILY 07/07/19 02/27/24 History prazosin 5 mg capsule 5 mg PO QPM 07/07/19 02/27/24 History atorvastatin 40 mg tablet 20 mg PO DAILY 11/21/23 02/27/24 History cholecalciferol (vitamin D3) 25 25 mcg PO DAILY 11/21/23 02/27/24 History mcg (1,000 unit) capsule lisinopril 20 mg tablet 40 mg PO DAILY 11/21/23 02/27/24 History Oxygen Home #2 L 12/04/23 01/14/24 Rx famotidine 40 mg tablet 40 mg PO DAILY #90 tabs 01/14/24 02/27/24 Rx metoprolol succinate 50 mg 50 mg PO DAILY #90 tabs 01/26/24 02/27/24 Rx tablet,extended release 24 hr Past Med/Surg History Problem List (Updated 02/27/24 @ 23:55 by Kristin Kaminski DO) Confusion Other stressful life events affecting family and household Hypoxia Dyspnea Pleural effusion, left Dementia (Acute) Medicare annual wellness visit, subsequent Ascending aortic aneurysm (Acute) CAD (coronary artery disease) (Chronic) CKD (chronic kidney disease), stage III (Chronic) Generalized osteoarthritis (Acute) Gout (Acute) Obesity (Acute) Thrombocytopenia (Acute) Hypertension (Chronic) Dyslipidemia (Chronic) Benign prostatic hypertrophy (Chronic) GERD (gastroesophageal reflux disease) (Chronic) Orthostatic hypotension (Acute) Medical History History of ST elevation myocardial infarction (STEMI) Stress hyperglycemia Syncope (10/11/13) Surgical History History of cholecystectomy History of colonoscopy (~2007) Hx of CABG (~2017) [facility]. Interiano to LAD, saphenous vein graft to distal right coronary, saphenous vein graft to left circumflex in the AV groove. Family History Brother Hx of CABG Hypertension Father Coronary heart disease Myocardial infarction Mother Coronary heart disease Myocardial infarction Denies family history of Ovarian cancer Prostate cancer Breast cancer Colorectal cancer Social History Smoking Status: Unknown if ever smoked Age Started Using Tobacco: 14; Age Quit Using Tobacco: 49; packs per day: 2; Cigarettes Per Day: 40; Second Hand Exposure: No; Do You Dip or Chew Tobacco: No; Hx Alcohol Use: No Hx Substance Use: No Preferred Language: Korean Visual Impairment: No Limitations Hearing Ability: Use of Hearing Aid Air Conditioning Technician Required: No Beliefs That Will Affect Care: None marital status: / Current Living Situation: Spouse current occupational status: retired Feels Safe at Home: Yes Childhood Exposure to Second-Hand Smoke: Yes Diet: regular caffeine: Yes Dental Care, Regularly: No Physical Activity Frequency: Daily Seatbelt Use: always Sunscreen Use: Yes Review of Systems Review of Systems: All systems reviewed & are unremarkable except as noted in HPI & below Physical Exam Physical Exam: General: patient resting comfortably, NAD, non-toxic in appearance, AA&O x 2 Skin: warm, dry, intact, no rashes or lesions HEENT: NC/AT, PERRL, EOMI, anicteric sclera, conjunctiva without injection, external ear normal to inspection and nontender, nares patent, moist mucus membranes, dentition intact, no oropharyngeal lesions, neck supple, trachea midline, no LAD, no thyromegaly, no JVD Heart: +S1/S2, regular, no m/r/g Lungs: equal air entry bilaterally, no rales/rhonchi/wheezes Abd: +BS, soft, NT/ND, no masses/organomegaly/ascites Ext: warm, 2+ pulses in UE/LE bilaterally, no clubbing/cyanosis or edema Neuro: nonfocal, patient AA&O x 2, speech intact, no facial droop, moving all extremities on command with equal strength 5/5 Results & Data Results & Data Vital Signs (Past 12 Hours) Vital Signs Temp Pulse Pulse Resp BP Pulse Ox O2 Del Method 02/27/24 22:10 64 20 172/90 H 95 Room Air 02/27/24 20:35 62 02/27/24 20:34 36.8 C 73 15 193/73 H 97 Room Air 02/27/24 20:34 97 Room Air Laboratory Results Laboratory Results WBC 4.29 K/ul (4.8-10.8) L 02/27/24 20:20 RBC 3.68 M/uL (4.70-6.10) L 02/27/24 20:20 Hgb 11.4 g/dl (14.0-18.0) L 02/27/24 20:20 Hct 34.0 % (42.0-52.0) L 02/27/24 20:20 MCV 92.4 fL (80.0-100.0) 02/27/24 20:20 MCH 31.0 pg (25.0-34.0) 02/27/24 20:20 MCHC 33.5 g/dL (32.0-36.0) 02/27/24 20:20 RDW Std Deviation 52.8 fL (36.4-46.3) H 02/27/24 20:20 RDW Coeff of Lucho 15.7 % (11.5-14.5) H 02/27/24 20:20 Plt Count 109 K/uL (130-400) L 02/27/24 20:20 MPV 12.4 fL (9.4-12.4) 02/27/24 20:20 Immature Gran % (Auto) 0.9 % 02/27/24 20:20 Neut % (Auto) 64.3 % 02/27/24 20:20 Lymph % (Auto) 14.5 % 02/27/24 20:20 Shasta % (Auto) 15.2 % 02/27/24 20:20 Eos % (Auto) 4.4 % 02/27/24 20:20 Baso % (Auto) 0.7 % 02/27/24 20:20 Neut # (Auto) 2.76 K/uL (1.40-6.50) 02/27/24 20:20 Lymph # (Auto) 0.62 K/uL (1.20-3.40) L 02/27/24 20:20 Shasta # (Auto) 0.65 K/uL (0.11-0.59) H 02/27/24 20:20 Eos # (Auto) 0.19 K/uL (0.00-0.50) 02/27/24 20:20 Baso # (Auto) 0.03 K/uL (0.00-0.20) 02/27/24 20:20 Immature Gran # (Auto) 0.04 K/uL (0.01-0.20) 02/27/24 20:20 Sodium 139 mmol/L (136-145) 02/27/24 20:20 Potassium 3.6 mmol/L (3.5-5.1) 02/27/24 20:20 Chloride 106 mmol/L (98-107) 02/27/24 20:20 Carbon Dioxide 26 mmol/L (21-32) 02/27/24 20:20 Anion Gap 7 (3-11) 02/27/24 20:20 BUN 14 mg/dl (6-23) 02/27/24 20:20 Creatinine 1.10 mg/dl (0.6-1.4) 02/27/24 20:20 Est Cr Clr Drug Dosing 52.5 ml/min 02/27/24 20:20 Est GFR ( Amer) 71.6 ml/min 02/27/24 20:20 Est GFR (Non-Af Amer) 61.8 ml/min 02/27/24 20:20 BUN/Creatinine Ratio 12.7 (10-20) 02/27/24 20:20 Glucose 101 mg/dl (70-99(Fasting)) H 02/27/24 20:20 Calcium 9.6 mg/dl (8.6-10.3) 02/27/24 20:20 Total Bilirubin 0.8 mg/dl (0.2-1.0) 02/27/24 20:20 AST 22 U/L (13-39) 02/27/24 20:20 ALT 12 U/L (7-52) 02/27/24 20:20 Alkaline Phosphatase 86 U/L (34-104) 02/27/24 20:20 Total Protein 7.6 gm/dl (6.0-8.3) 02/27/24 20:20 Albumin 4.5 gm/dl (3.4-5.0) 02/27/24 20:20 Globulin 3.1 gm/dl (2.5-4.0) 02/27/24 20:20 Albumin/Globulin Ratio 1.5 (0.9-2) 02/27/24 20:20 TSH 1.301 uIu/ml (0.300-4.500) 02/27/24 20:20 SARS-CoV-2, RNA, NAAT NEGATIVE (NEGATIVE) 02/27/24 20:31 Impressions Chest X-Ray 02/27/24 20:10 SINGLE VIEW CHEST CLINICAL HISTORY: Change in mental status. FINDINGS: An AP, portable, upright chest radiograph is compared to study dated 12/09/2023 and correlated with chest CT dated 12/03/2016. The patient is status post midline sternotomy. The heart is enlarged. There is pulmonary vascular congestion. Emphysema and chronic interstitial thickening is similar to previous. Scarring/atelectasis is noted at both lung bases. A focus of nodularity at the right lung base is similar to 12/09/2023 examination. There is a scarlike opacity at the left apex. No large pleural effusion or pneumothorax is seen. The skeletal structures are osteopenic. The bony thorax is grossly intact. IMPRESSION: 1. Cardiomegaly and emphysema with pulmonary vascular congestion. 2. Foci of scarring/nodularity are again seen at the left apex as well as the right lung base. Correlation with a chest CT is recommended for further assessment. ACT 112: Negative or not required by law. Electronically signed by: Jose Manuel Lizama M.D. 02/27/2024 9:[address] 02/27/24 20:10 Exam(s): CT HEAD Without Contrast EXAM: CT Head Without Intravenous Contrast CLINICAL HISTORY: Reason for exam: confusion. TECHNIQUE: Axial computed tomography images of the head/brain without intravenous contrast. CTDI is 62.75 mGy and DLP is 1098.96 mGy-cm. Automated exposure control was utilized for the study. A dose lowering technique was utilized adhering to the principles of ALARA. COMPARISON: No relevant prior studies available. FINDINGS: Brain: Unremarkable. No hemorrhage. Moderate nonspecific white matter changes. No edema. Prominent pituitary gland with convex superior margin measuring 9.9 mm in height concerning for underlying adenoma. Ventricles: Moderate ventriculomegaly. Bones/joints: Unremarkable. No acute fracture. Soft tissues: Unremarkable. Sinuses: Unremarkable as visualized. No acute sinusitis. Mastoid air cells: Unremarkable as visualized. No mastoid effusion. IMPRESSION: No evidence of acute intracranial pathology. Electronically signed by: Veronica Lozoya MD 02/27/24 23:19 PM PG Care Time/CCT Total # of Minutes Spent Total Time Spent with Patient: Total time spent is greater than 50% in coordination of care (as documented) at patient's floor/unit and/or counseling patient: Coding Level of Care Code 90638 INT INP/OBS CARE MIN Diagnoses Confusion R41.0
--- NOTE | 2024-02-27 23:19 | CT Scan Report ---
Exam(s): CT HEAD Without Contrast EXAM: CT Head Without Intravenous Contrast CLINICAL HISTORY: Reason for exam: confusion. TECHNIQUE: Axial computed tomography images of the head/brain without intravenous contrast. CTDI is 62.75 mGy and DLP is 1098.96 mGy-cm. Automated exposure control was utilized for the study. A dose lowering technique was utilized adhering to the principles of ALARA. COMPARISON: No relevant prior studies available. FINDINGS: Brain: Unremarkable. No hemorrhage. Moderate nonspecific white matter changes. No edema. Prominent pituitary gland with convex superior margin measuring 9.9 mm in height concerning for underlying adenoma. Ventricles: Moderate ventriculomegaly. Bones/joints: Unremarkable. No acute fracture. Soft tissues: Unremarkable. Sinuses: Unremarkable as visualized. No acute sinusitis. Mastoid air cells: Unremarkable as visualized. No mastoid effusion. IMPRESSION: No evidence of acute intracranial pathology. Electronically signed by: Veronica Lozoya MD 02/27/24 23:19 PM
[2024-02-27] MEDS: PRAZOSIN HCL 1 MG CAP PO STA (23:35)
[2024-02-27] MEDS ORDERED: ONDANSETRON INJ 2 MG/ML 2 ML VIAL IV PRN (23:55)
[2024-02-28 00:28] LABS: Magnesium 1.8 mg/dl (1.7-2.4); Phosphorus 2.8 mg/dl (2.5-4.9)
[2024-02-28 03:16] LABS: Appearance Urine Clear (Clear); Bilirubin Urine Negative (Negative); Blood Urine Negative (Negative); Color Urine Yellow; Glucose Urine UA Negative (Negative); Ketones Urine Negative (Negative); Leukocyte Esterase Urine Negative (Negative); Nitrite Urine Negative (Negative); Protein Urine Negative (Negative); Specific Gravity Urine 1.011 (1.000-1.030); Urobilinogen Urine Negative (Negative)
[2024-02-28 07:14] LABS: Hematocrit (blood only) 28.6 % (42.0-52.0); Hemoglobin 9.6 g/dl (14.0-18.0); Mean Corpuscular Hgb Conc 33.6 g/dL (32.0-36.0); Mean Corpuscular Volume 92.3 fL (80.0-100.0); Mean Platelet Volume 12.9 fL (9.4-12.4); Platelet Count 89 K/uL (130-400); RDW Coefficient of Variation 15.6 % (11.5-14.5); RDW Standard Deviation 52.3 fL (36.4-46.3); White Blood Count 3.41 K/ul (4.8-10.8)
[2024-02-28 07:29] LABS: Albumin Level 3.9 gm/dl (3.4-5.0); Bilirubin Direct 0.2 mg/dl (0-0.2); Creatinine Clr Calc Pharmacy 57.8 ml/min; Est GFR (African American) 80.3 ml/min; Est GFR (Non-African American) 69.3 ml/min; Potassium 3.5 mmol/L (3.5-5.1); Total Protein 6.6 gm/dl (6.0-8.3)
[2024-02-28] MEDS: ATORVASTATIN 20 MG TAB PO SCH (08:06)
[2024-02-28] MEDS: METOPROLOL SUCC 50MG EXT REL TAB PO SCH (08:06)
[2024-02-28] MEDS: lisinopril 40 MG TAB PO SCH (08:06)
[2024-02-28] MEDS: FAMOTIDINE 40 MG TABLET PO SCH (08:07)
[2024-02-28] MEDS: ASPIRIN 81 MG ECTAB PO SCH (08:14)
--- NOTE | 2024-02-28 10:44 | Hospitalist Progress Note ---
Date of Service February 28, 2024 Assessment & Plan (1) Confusion: Plan: Patient has a history of dementia, which seems to have been worsening over the past several months Brought to the hospital on account of worsening confusion. CT scan of the head is unremarkable, no evidence of infection anyway. I spoke to the JASONEmmett Kruger and also the patient's friend. Plan is placement because patient is no longer able to take care of himself -PT/OT evaluation (2) Hypertension: Plan: Blood pressure under good control On lisinopril and metoprolol, continue (3) Dementia: Plan: Worsening dementia Follows up with PCP who also noticed that his dementia seems to be worse Patient will need placement. (4) Other stressful life events affecting family and household: Plan Awaiting evaluation by PT OT Also social human services assistants regarding placement I spoke with TEREZA Crawley, her number is [phone] Admission and Anticipated Discharge Date Admission Date: February 27, 2024 Subjective Patient seen and examined, sitting up quietly in chair denies any new complaints. Review of Systems Review of Systems: Unreliable due to dementia Physical Exam Physical Exam: The patient is awake, alert and oriented 2, well developed and well nourished, normocephalic and atraumatic, lying in bed and in no acute distress. HEENT--PERRL, EOMI, mucous membranes and oropharynx mildly dry Neck--supple. No JVD. No bruits. Thyroid normal, trachea midline, no adenopathy. Heart--normal S1 and S2. No murmurs, rubs or gallops. Lungs--clear bilaterally, no respiratory distress, no accessory muscle use. Abdomen--normal bowel sounds and soft. Extremities--no cyanosis or clubbing. No edema. Dermatologic--normal skin turgor, normal color, no abnormal lymph nodes, no rash. Neurologic--cranial nerves II through XII grossly intact. Rheumatologic--normal range of motion. Psychiatric--normal affect. Results & Data Results & Data Vital Signs (Past 12 Hours) Vital Signs Temp Pulse Pulse Resp BP BP Pulse Ox 02/28/24 08:53 02/28/24 08:04 97.7 F 66 18 133/71 96 02/27/24 23:56 02/27/24 23:56 97.7 F 69 16 176/72 H 95 02/27/24 23:56 02/27/24 23:56 97.7 F 69 16 176/72 H 95 02/27/24 23:50 54 L 18 172/97 H 97 02/27/24 23:33 55 L 15 96 02/27/24 23:06 56 L 13 98 02/27/24 22:42 57 L 24 97 O2 Del Method 02/28/24 08:53 Room Air 02/28/24 08:04 Room Air 02/27/24 23:56 Room Air 02/27/24 23:56 Room Air 02/27/24 23:56 Room Air 02/27/24 23:56 Room Air 02/27/24 23:50 Room Air 02/27/24 23:33 02/27/24 23:06 02/27/24 22:42 PG Care Time/CCT Total # of Minutes Spent Total Time Spent with Patient: Total time spent is greater than 50% in coordination of care (as documented) at patient's floor/unit and/or counseling patient: Coding Level of Care Code 98219 SUB INP/OBS CARE 2/35MIN Diagnoses Confusion R41.0 Hypertension, unspecified type I10 Hypertension type: unspecified Dementia F03.90 Other stressful life events affecting family and household Z63.79 Time Spent (min) 35 (2) Hypertension Hypertension type: unspecified Qualified Code(s): I10 - Essential (primary) hypertension
--- NOTE | 2024-02-28 11:50 | Electrocardiogram Report ---
Test Reason : Blood Pressure : / mmHG Vent. Rate : 064 BPM Atrial Rate : 064 BPM P-R Int : 158 ms QRS Dur : 082 ms QT Int : 420 ms P-R-T Axes : 040 003 052 degrees QTc Int : 433 ms Normal sinus rhythm Nonspecific T wave abnormality Abnormal ECG When compared with ECG of 21-NOV-2023 10:40, (unconfirmed) Criteria for Septal infarct are no longer Present Confirmed by Jeffrey Rodriguez ([id number]) on 02/28/2024 11:50:04 AM Referred By: REFERRED SELF Confirmed By:Jeffrey Rodriguez
[2024-02-28] MEDS: ACETAMINOPHEN 500 MG TAB PO PRN (16:56)
[2024-02-28] MEDS: PRAZOSIN HCL 1 MG CAP PO SCH (19:40)
[2024-02-29] MEDS: MELATONIN 3 MG TAB PO PRN (00:50)
--- NOTE | 2024-02-29 08:40 | XRay Report ---
XR chest 1V portable HISTORY: Aspiration COMPARISON: Chest 02/27/2024. FINDINGS: No pneumothorax. Emphysema. Blunting of the costophrenic sulci. The heart is top normal in size. Poststernotomy changes are again noted. Chronic interstitial thickening persists. Patchy right basilar densities have slightly progressed. This may represent a mild pneumonitis. A 16 mm irregular density within left upper lobe and a 19 mm nodular density within the base the right lower lobe again noted. Prior cholecystectomy. Trace bilateral pleural effusions. IMPRESSION: 1. Patchy right basilar densities have slightly progressed. This could represent atelectasis or a pne umonia. 2. Trace bilateral pleural effusions. 3. Left upper lobe and right lung base irregular/nodular densities are again noted. These could repre sent pulmonary nodules. Follow-up nonemergent chest CT is recommended for further evaluation. ACT 112: Positive. There are findings on this exam that require communication between the performing entity and the patient following Patient Test Result Information Act ([place] Act 112) guidelines. Electronically signed by: Clem Dixon M.D. 02/29/2024 8:39 AM
--- NOTE | 2024-02-29 11:02 | Hospitalist Progress Note ---
Date of Service February 29, 2024 Assessment & Plan (1) Confusion: Plan: Patient has a history of dementia, which seems to have been worsening over the past several months Brought to the hospital on account of worsening confusion. CT scan of the head is unremarkable, no evidence of infection anyway. I spoke to the TEREZA Crawley and also the patient's friend. Plan is placement because patient is no longer able to take care of himself -PT/OT evaluation (2) Hypertension: Plan: Blood pressure under good control On lisinopril and metoprolol, continue (3) Dementia: Plan: Worsening dementia Follows up with PCP who also noticed that his dementia seems to be worse Patient will need placement. (4) Other stressful life events affecting family and household: Plan Awaiting evaluation by PT OT Also social media marketing analyst regarding placement I spoke with TEREZA Crawley, her number is [phone] Admission and Anticipated Discharge Date Admission Date: February 27, 2024 Subjective Patient seen and examined, Lying quietly in bed, no new complaints, Tolerating diet Review of Systems Review of Systems: Unreliable due to dementia Physical Exam Physical Exam: The patient is awake, alert and oriented 2, well developed and well nourished, normocephalic and atraumatic, lying in bed and in no acute distress. HEENT--PERRL, EOMI, mucous membranes and oropharynx mildly dry Neck--supple. No JVD. No bruits. Thyroid normal, trachea midline, no adenopathy. Heart--normal S1 and S2. No murmurs, rubs or gallops. Lungs--clear bilaterally, no respiratory distress, no accessory muscle use. Abdomen--normal bowel sounds and soft. Extremities--no cyanosis or clubbing. No edema. Dermatologic--normal skin turgor, normal color, no abnormal lymph nodes, no rash. Neurologic--cranial nerves II through XII grossly intact. Rheumatologic--normal range of motion. Psychiatric--normal affect. Results & Data Results & Data Vital Signs (Past 12 Hours) Vital Signs Pulse Resp BP Pulse Ox O2 Del Method 02/29/24 08:49 Room Air 02/29/24 08:41 75 18 142/76 H 96 Room Air PG Care Time/CCT Total # of Minutes Spent Total Time Spent with Patient: Total time spent is greater than 50% in coordination of care (as documented) at patient's floor/unit and/or counseling patient: Coding Level of Care Code 26476 SUB INP/OBS CARE 2/35MIN Diagnoses Confusion R41.0 Hypertension, unspecified type I10 Hypertension type: unspecified Dementia F03.90 Other stressful life events affecting family and household Z63.79 Time Spent (min) 35 (2) Hypertension Hypertension type: unspecified Qualified Code(s): I10 - Essential (primary) hypertension
--- NOTE | 2024-02-29 19:09 | Communication Note ---
Date of Service: February 29, 2024 Notified by nursing again that patient increasingly agitated and confused with fixation on leaving the hospital. Patient here for confusion in the setting of dementia, now awaiting placement. Attempt last evening to provide sleep aide (melatonin) resulted in concern of aspiration. Patient has since been cleared by speech therapy. Vitals: Hemodynamically stable Patient only oriented to self, not redirectable. Assessment/Plan: - Suspect that patient is experiencing delirium superimposed on baseline dementia - Patient now experiencing second night of agitation w/o ability to be redirected - Will provide Zyprexa 2.5 mg PO, with ability to increase by an additional 2.5 mg PO if needed - Would recommend consideration of intermediate designer plan for management of night time agitation/confusion as placement is the intermediate designer goal Resident Activity Tracking Resident Involvement: Resident Care Provided Care Provided: Adult Hospital Medicine
[2024-02-29] MEDS: OLANZAPINE 2.5 MG TAB PO STA (19:13)
[2024-03-01] MEDS: OLANZAPINE 2.5 MG TAB PO STA (04:53)
[2024-03-01 07:37] LABS: Hematocrit (blood only) 35.4 % (42.0-52.0); Mean Corpuscular Hemoglobin 31.4 pg (25.0-34.0); Mean Corpuscular Hgb Conc 33.9 g/dL (32.0-36.0); Mean Corpuscular Volume 92.7 fL (80.0-100.0); Mean Platelet Volume 12.3 fL (9.4-12.4); Platelet Count 118 K/uL (130-400); RDW Coefficient of Variation 15.6 % (11.5-14.5); RDW Standard Deviation 52.7 fL (36.4-46.3); Red Blood Count 3.82 M/uL (4.70-6.10); White Blood Count 5.14 K/ul (4.8-10.8)
[2024-03-01 07:54] LABS: BUN Creatinine Ratio 13.8 (10-20); Est GFR (African American) 72.4 ml/min; Est GFR (Non-African American) 62.4 ml/min; Potassium 3.8 mmol/L (3.5-5.1)
--- NOTE | 2024-03-01 11:35 | Hospitalist Progress Note ---
Date of Service March 01, 2024 Assessment & Plan (1) Confusion: Plan: Patient has a history of dementia, which seems to have been worsening over the past several months Brought to the hospital on account of worsening confusion. CT scan of the head is unremarkable, no evidence of infection anyway. Plan is placement because patient is no longer able to take care of himself -PT/OT evaluation (2) Agitation: Plan: Patient often gets agitated during late evening's or night This could be due to owning. Will try to use non Pharmacological methods as much as possible We can use soft restraints like mitts or one-on-one (3) Hypertension: Plan: Blood pressure under good control On lisinopril and metoprolol, continue (4) Dementia: Plan: Worsening dementia Follows up with PCP who also noticed that his dementia seems to be worse Patient will need placement. (5) Other stressful life events affecting family and household: Plan Awaiting evaluation by PT OT Also social services assistant regarding placement I spoke with TEREZA Densia, her number is [phone] Admission and Anticipated Discharge Date Admission Date: February 29, 2024 Subjective Patient seen and examined, Lying quietly in bed, no new complaints, Tolerating diet Review of Systems 2 Review of Systems: Unreliable due to dementia Physical Exam Physical Exam: The patient is awake, alert and oriented 2, well developed and well nourished, normocephalic and atraumatic, lying in bed and in no acute distress. HEENT--PERRL, EOMI, mucous membranes and oropharynx mildly dry Neck--supple. No JVD. No bruits. Thyroid normal, trachea midline, no adenopathy. Heart--normal S1 and S2. No murmurs, rubs or gallops. Lungs--clear bilaterally, no respiratory distress, no accessory muscle use. Abdomen--normal bowel sounds and soft. Extremities--no cyanosis or clubbing. No edema. Dermatologic--normal skin turgor, normal color, no abnormal lymph nodes, no rash. Neurologic--cranial nerves II through XII grossly intact. Rheumatologic--normal range of motion. Psychiatric--normal affect. Results & Data Results & Data Vital Signs (Past 12 Hours) Vital Signs Temp Pulse Resp BP BP Pulse Ox O2 Del Method 03/01/24 08:10 91 H 16 95/59 L 97 Room Air 03/01/24 07:55 Room Air 03/01/24 07:26 97.9 F 93 H 18 96/63 L 96 Room Air PG Care Time/CCT Total # of Minutes Spent Total Time Spent with Patient: Total time spent is greater than 50% in coordination of care (as documented) at patient's floor/unit and/or counseling patient: Coding Level of Care Code 10323 SUB INP/OBS CARE 2/35MIN Diagnoses Confusion R41.0 Agitation R45.1 Hypertension, unspecified type I10 Hypertension type: unspecified Dementia F03.90 Other stressful life events affecting family and household Z63.79 Time Spent (min) 35 (3) Hypertension Hypertension type: unspecified Qualified Code(s): I10 - Essential (primary) hypertension
[2024-03-01] MEDS: OLANZapine 10 MG/2.1 ML SDV IM STA (17:53)
--- NOTE | 2024-03-02 11:41 | Hospitalist Progress Note ---
Date of Service March 02, 2024 Assessment & Plan (1) Confusion: Plan: Acute on chronic encephalopathy: Patient has a history of dementia, which seems to have been worsening over the past several months Brought to the hospital on account of worsening confusion. CT scan of the head is unremarkable, no evidence of infection anyway. Plan is placement because patient is no longer able to take care of himself -PT/OT evaluation (2) Agitation: Plan: Patient often gets agitated during late evening's or night This could be due to owning. Will try to use non Pharmacological methods as much as possible We can use soft restraints like mitts or one-on-one Redirection by family member also very helpful (3) Hypertension: Plan: Blood pressure under good control On lisinopril and metoprolol, continue (4) Dementia: Plan: Worsening dementia Follows up with PCP who also noticed that his dementia seems to be worse Patient will need placement. (5) Other stressful life events affecting family and household: Plan Awaiting evaluation by PT OT Also social worker health services regarding placement I spoke with TERZEA Crawley, her number is [phone] Admission and Anticipated Discharge Date Admission Date: February 29, 2024 Subjective Patient seen and examined, Sitting up in the chair, was a bit agitated and anxious Review of Systems Review of Systems: Unreliable due to dementia Physical Exam Physical Exam: The patient is awake, alert and oriented 2, well developed and well nourished, normocephalic and atraumatic, lying in bed and in no acute distress. HEENT--PERRL, EOMI, mucous membranes and oropharynx mildly dry Neck--supple. No JVD. No bruits. Thyroid normal, trachea midline, no adenopathy. Heart--normal S1 and S2. No murmurs, rubs or gallops. Lungs--clear bilaterally, no respiratory distress, no accessory muscle use. Abdomen--normal bowel sounds and soft. Extremities--no cyanosis or clubbing. No edema. Dermatologic--normal skin turgor, normal color, no abnormal lymph nodes, no rash. Neurologic--cranial nerves II through XII grossly intact. Rheumatologic--normal range of motion. Psychiatric--normal affect. Results & Data Results & Data Vital Signs (Past 12 Hours) Vital Signs Temp Pulse Resp BP Pulse Ox O2 Del Method 03/02/24 09:18 97.5 F L 84 16 132/66 98 Room Air PG Care Time/CCT Total # of Minutes Spent Total Time Spent with Patient: Total time spent is greater than 50% in coordination of care (as documented) at patient's floor/unit and/or counseling patient: Coding Level of Care Code 90494 SUB INP/OBS CARE 2/35MIN Diagnoses Confusion R41.0 Agitation R45.1 Hypertension, unspecified type I10 Hypertension type: unspecified Dementia F03.90 Other stressful life events affecting family and household Z63.79 Time Spent (min) 35 (3) Hypertension Hypertension type: unspecified Qualified Code(s): I10 - Essential (primary) hypertension
[2024-03-02] MEDS: OLANZapine 10 MG/2.1 ML SDV IM STA (19:44)
[2024-03-02] MEDS: OLANZapine 10 MG/2.1 ML SDV IM ONE (19:46)
[2024-03-03] MEDS: OLANZapine 5 MG TABLET PO STA (00:57)
--- NOTE | 2024-03-03 09:50 | Hospitalist Progress Note ---
Date of Service March 03, 2024 Assessment & Plan (1) Confusion: Plan: Acute on chronic encephalopathy: Patient has a history of dementia, which seems to have been worsening over the past several months Brought to the hospital on account of worsening confusion. CT scan of the head is unremarkable, no evidence of infection anyway. Plan is placement because patient is no longer able to take care of himself (2) Agitation: Plan: Patient often gets agitated during late evening's or night This could be due to owning. Will try to use non Pharmacological methods as much as possible We can use soft restraints like mitts or one-on-one Redirection by family member also very helpful As a last resort, As needed Zyprexa 5 mg IM every 4 hours However patient would not be accepted in a facility if he is still requiring IV or IM medicine for agitation (3) Hypertension: Plan: Blood pressure under good control On lisinopril and metoprolol, continue (4) Dementia: Plan: Worsening dementia Follows up with PCP who also noticed that his dementia seems to be worse Patient will need placement. (5) Other stressful life events affecting family and household: Plan Awaiting placement, however patient will not be able to go to a facility if he is still requiring IV or IM medicine for agitation I spoke with TEREZA Crawley, her number is [phone] Admission and Anticipated Discharge Date Admission Date: February 29, 2024 Subjective Patient seen and examined, Lying quietly in bed, girlfriend Claritza by the bedside Review of Systems Review of Systems: Unreliable due to dementia Physical Exam Physical Exam: The patient is awake, alert and oriented 2, well developed and well nourished, normocephalic and atraumatic, lying in bed and in no acute distress. HEENT--PERRL, EOMI, mucous membranes and oropharynx mildly dry Neck--supple. No JVD. No bruits. Thyroid normal, trachea midline, no adenopathy. Heart--normal S1 and S2. No murmurs, rubs or gallops. Lungs--clear bilaterally, no respiratory distress, no accessory muscle use. Abdomen--normal bowel sounds and soft. Extremities--no cyanosis or clubbing. No edema. Dermatologic--normal skin turgor, normal color, no abnormal lymph nodes, no rash. Neurologic--cranial nerves II through XII grossly intact. Rheumatologic--normal range of motion. Psychiatric--normal affect. Results & Data Results & Data Vital Signs (Past 12 Hours) Vital Signs Temp Pulse Resp BP O2 Del Method 03/03/24 07:30 Room Air 03/03/24 07:22 97.7 F 91 H 18 102/66 Room Air PG Care Time/CCT Total # of Minutes Spent Total Time Spent with Patient: Total time spent is greater than 50% in coordination of care (as documented) at patient's floor/unit and/or counseling patient: Coding Level of Care Code 37606 SUB INP/OBS CARE 2/35MIN Diagnoses Confusion R41.0 Agitation R45.1 Hypertension, unspecified type I10 Hypertension type: unspecified Dementia F03.90 Other stressful life events affecting family and household Z63.79 Time Spent (min) 35 (3) Hypertension Hypertension type: unspecified Qualified Code(s): I10 - Essential (primary) hypertension
[2024-03-03] MEDS: OLANZAPINE 2.5 MG TAB PO PRN (14:21)
[2024-03-03] MEDS: OLANZapine 10 MG/2.1 ML SDV IM PRN (19:54)
[2024-03-03] MEDS: HALOPERIDOL LACTATE 5 MG/ML 1 ML VIAL IM STA (22:00)
[2024-03-03] MEDS: HALOPERIDOL LACTATE 5 MG/ML 1 ML VIAL ONE (22:10)
--- NOTE | 2024-03-04 13:47 | Psychiatric Consultation ---
Date of Consultation March 04, 2024 Impression / Recommendations Impression 83-year-old male history of dementia, GERD, CAD, HTN, HLD presents with increased aggression. Psychiatry consulted for recommendations to manage patient's agitation. Patient presenting with progressive dementia with behavioral disturbances. Patient is poorly oriented with significant attention deficits and is only able to follow simple commands. Collateral from outpatient PCP indicates executive dysfunction, appetite loss, inability to maintain bladder and bowel and requiring assistance with ADLs. High suspicion for progressive dementia likely due to Alzheimer's versus vascular. Could order brain MRI, EEG and further lab studies if concerned for delirium. Recommend to continue bedside sitter. Patient would benefit from higher level of care upon discharge. For behavioral management recommend to start olanzapine 2.5 mg in the morning and 5 mg at bedtime. Olanzapine 2.5mg PO/IM BID PRN for emergency agitation. Overall, I spent a total of 40 minutes with this case including review of chart records, nursing report, review of lab work, direct evaluation of the patient at bedside, counseling the patient, discussion of the patient with the hospitalist provider, discussion with the psychiatric liaison during clinical rounds, and documentation in the electronic health record. (1) Dementia with behavioral disturbance: Psych History Identifying Data 83-year-old male history of dementia, GERD, CAD, HTN, HLD presents with increased aggression. Psychiatry consulted for recommendations to manage patient's agitation. Chief Complaint Agitation History of Present Illness Chart review: Patient received 10 mg of IM Zyprexa in the last 24 hours and Haldol 5 mg. Concern for sundowning. Recent soft restraints and was discontinued. Friend Claritza reports patient has had some short-term memory impairments. Recent disorientation. No current dementia treatment. PCP note from 01/14/2024 reports patient has end-stage progressive dementia. Significant appetite loss, problems with attention, impulsive outbursts. Co ncern for ability to make medical decisions. Patient also experiencing urinary and fecal incontinence at night and poor self-care. Patient would benefit from memory Center. On exam patient is alert to his name. Not oriented to place, type of building, city, state, year. He is able to follow simple commands. Has poor attention and requires reprompting. He denies having pain or feelings of sadness. He is seen shaking his hands. He appears pleasant. Note from C/L nurse " Call placed to Claritza, significant other. Claritza reports living with Sohan for 5 years. She seen "signs" of dementia ~3 years ago, at that time his PCP did find it to be significant enough to prescribe medications. She feels his confusion became worse within the last year, typically starts around 4pm. He becomes more confused and will pace around the house, seems to be looking for something but doesn't know what it is. The day of admission, patient was pacing from room to room at their apartment, he was becoming angry/irritable and unable to assure him as usual, prompting her to call 911 for assistance. Claritza is not familiar with family or patient psych history, denies any psych issues in the last 5 years. Patient is not close with his family/siblings (sister and brother). He is and does not have children. She reports being in touch with Denisa recently d/t patient's increased confusion, encouraged her and other siblings to visit with patient "before he forgets who they are". Claritza reports tension between her and Denisa, they have not spoke in some time and Denisa does not answer Claritza's phone calls. Claritza became tearful and hopes that Sohan can be placed somewhere locally, so she is able to visit (she does not drive). Claritza plans to bring some belongings today and visit with patient. Call placed to Denisa, patient's sister/POA. Denisa does not believe that Sohan had any psych history nor substance use history. Sohan was previously , about 6 years ago. She reiterated that he lives with Claritza and that she would have better knowledge of recent history/behavior. She was aware of patient's increased confusion but could not elaborate on details. She notes that she was looking into some SNFs near her home (towards [place]) but was open to any facilities. Per notes, HARISH had left her a message regarding placement, Denisa reports she did not receive a message. Updated HARISH Wilkerson via [employer]. " Allergies Allergy/AdvReac Type Severity Reaction Status Date / Time aspirin Allergy Unknown Unknown Verified 02/27/24 21:12 Corticosteroids Allergy Unknown Unknown Verified 02/27/24 21:12 (Glucocorticoids) [id number] Reductase AdvReac Unknown Unknown Verified 02/27/24 21:12 Inhibitor Home Medications Medication Instructions Recorded Confirmed Type acetaminophen 500 mg tablet 1,000 mg PO Q8H PRN Pain 07/07/19 02/27/24 History (Tylenol Extra Strength) aspirin 81 mg tablet,delayed 81 mg PO DAILY 07/07/19 02/27/24 History release (Adult Low Dose Aspirin) multivitamin 1 tab PO DAILY 07/07/19 02/27/24 History prazosin 5 mg capsule 5 mg PO QPM 07/07/19 02/27/24 History atorvastatin 40 mg tablet 20 mg PO DAILY 11/21/23 02/27/24 History cholecalciferol (vitamin D3) 25 25 mcg PO DAILY 11/21/23 02/27/24 History mcg (1,000 unit) capsule lisinopril 20 mg tablet 40 mg PO DAILY 11/21/23 02/27/24 History Oxygen Home #2 L 12/04/23 01/14/24 Rx famotidine 40 mg tablet 40 mg PO DAILY #90 tabs 01/14/24 02/27/24 Rx metoprolol succinate 50 mg 50 mg PO DAILY #90 tabs 01/26/24 02/27/24 Rx tablet,extended release 24 hr Patient History Medical History History of ST elevation myocardial infarction (STEMI) Stress hyperglycemia Syncope (10/11/13) Surgical History History of cholecystectomy History of colonoscopy (~2007) Hx of CABG (~2016) [facility]. Interiano to LAD, saphenous vein graft to distal right coronary, saphenous vein graft to left circumflex in the AV groove. Family History Brother Hx of CABG Hypertension Father Coronary heart disease Myocardial infarction Mother Coronary heart disease Myocardial infarction Denies family history of Ovarian cancer Prostate cancer Breast cancer Colorectal cancer Social History Smoking Status: Unknown if ever smoked Age Started Using Tobacco: 14; Age Quit Using Tobacco: 49; packs per day: 2; Second Hand Exposure: Yes; Do You Dip or Chew Tobacco: No; Tobacco Cessation Education Requested by Patient: No Hx Alcohol Use: No Hx Substance Use: No Preferred Language: Gabonese Communication Ability: Impaired Visual Impairment: No Limitations Hearing Ability: Use of Hearing Aid Mixing And Dispensing Supervisor Required: No Beliefs That Will Affect Care: None marital status: / Current Living Situation: Significant Other and Other Current Living Situation Comment: Lives with friend. current occupational status: retired Other Information That Helps Us Care for You: No Feels Safe at Home: Yes Safety Concerns: Feels Safe At This Time Childhood Exposure to Second-Hand Smoke: Yes Diet: regular caffeine: Yes Dental Care, Regularly: No Physical Activity Frequency: Daily Seatbelt Use: always Sunscreen Use: Yes Assistive Devices: None Physical Exam Mental Examination: unable to assess mood, limited spontaneous speech, did not present signs of psychosis. Appearance: Unkempt Eye Contact: Diverts Contact Motor Behavior: Restless Speech: Soft and Poverty of Speech Affect: Calm Hallucinations: None Insight: Poor Judgement: Poor Vital Signs (Past 24 Hours): Last Vital Signs Temp 36.3 C L 03/03/24 23:08 Pulse 85 03/04/24 08:45 Resp 17 03/04/24 08:45 BP 88/53 L 03/04/24 08:45 Pulse Ox 95 03/04/24 08:45 O2 Del Method Room Air 03/04/24 08:45 Results & Data (PSY) Medications Administered Acetaminophen (Acetaminophen 500 Mg Tab) 1,000 mg PO Q8H PRN PRN Reason: Pain Stop: 03/28/24 23:54 Last Admin: 02/28/24 16:56 Dose: 1,000 mg Documented By: ELIZABETH Aspirin (Aspirin 81 Mg Ectab) 81 mg PO DAILY JEYSON Stop: 03/29/24 08:59 Last Admin: 03/04/24 08:49 Dose: 81 mg Documented By: Admin: 03/03/24 07:24 Dose: 81 mg Documented By: Admin: 03/02/24 09:21 Dose: 81 mg Documented By: Admin: 03/01/24 08:18 Dose: 81 mg Documented By: Admin: 02/29/24 10:06 Dose: 81 mg Documented By: Admin: 02/28/24 08:14 Dose: 81 mg Documented By: ELIZABETH Atorvastatin Calcium (Atorvastatin 20 Mg Tab) 20 mg PO DAILY JEYSON Stop: 03/29/24 08:59 Last Admin: 03/04/24 08:49 Dose: 20 mg Documented By: Admin: 03/03/24 07:24 Dose: 20 mg Documented By: Admin: 03/02/24 09:22 Dose: 20 mg Documented By: Admin: 03/01/24 08:18 Dose: 20 mg Documented By: Admin: 02/29/24 10:06 Dose: 20 mg Documented By: Admin: 02/28/24 08:06 Dose: 20 mg Documented By: ELIZABETH Famotidine (Famotidine 40 Mg Tablet) 40 mg PO DAILY JEYSON Stop: 03/29/24 08:59 Last Admin: 03/04/24 08:49 Dose: 40 mg Documented By: Admin: 03/03/24 07:24 Dose: 40 mg Documented By: Admin: 03/02/24 09:21 Dose: 40 mg Documented By: Admin: 03/01/24 08:18 Dose: 40 mg Documented By: Admin: 02/29/24 10:05 Dose: 40 mg Documented By: Admin: 02/28/24 08:07 Dose: 40 mg Documented By: ELIZABETH Lisinopril (Lisinopril 40 Mg Tab) 40 mg PO DAILY JEYSON Stop: 03/29/24 08:59 Last Admin: 03/01/24 08:32 Dose: Not Given Documented By: Admin: 02/29/24 10:06 Dose: 40 mg Documented By: Admin: 02/28/24 08:06 Dose: 40 mg Documented By: ELIZABETH Melatonin (Melatonin 3 Mg Tab) 9 mg PO HS PRN PRN Reason: Sleep Stop: 03/30/24 00:44 Last Admin: 03/03/24 22:55 Dose: 9 mg Documented By: Admin: 03/02/24 21:30 Dose: 9 mg Documented By: Admin: 03/01/24 20:09 Dose: 9 mg Documented By: Admin: 02/29/24 19:13 Dose: 9 mg Documented By: Admin: 02/29/24 00:50 Dose: 9 mg Documented By: MARK Metoprolol Succinate (Metoprolol Succ 50mg Ext Rel Tab) 50 mg PO DAILY JEYSON Stop: 03/29/24 08:59 Last Admin: 03/04/24 08:49 Dose: Not Given Documented By: Admin: 03/03/24 07:24 Dose: 50 mg Documented By: Admin: 03/02/24 09:21 Dose: 50 mg Documented By: Admin: 03/01/24 08:17 Dose: Not Given Documented By: Admin: 02/29/24 10:05 Dose: 50 mg Documented By: Admin: 02/28/24 08:06 Dose: 50 mg Documented By: ELIZABETH Olanzapine (Olanzapine 10 Mg/2.1 Ml Sdv) 5 mg IM Q4H PRN PRN Reason: Agitation Stop: 04/02/24 07:44 Last Admin: 03/03/24 19:54 Dose: 5 mg Documented By: MALCOLM Olanzapine (Olanzapine 2.5 Mg Tab) 2.5 mg PO Q4H PRN PRN Reason: Agitation Stop: 04/02/24 14:14 Last Admin: 03/03/24 22:55 Dose: 2.5 mg Documented By: Admin: 03/03/24 14:21 Dose: 2.5 mg Documented By: SONAL Prazosin HCl (Prazosin Hcl 1 Mg Cap) 5 mg PO QPM JEYSON Stop: 03/29/24 20:59 Last Admin: 03/03/24 22:55 Dose: 5 mg Documented By: Admin: 03/02/24 21:30 Dose: 5 mg Documented By: Admin: 03/01/24 20:09 Dose: 5 mg Documented By: Admin: 02/29/24 20:03 Dose: 5 mg Documented By: Admin: 02/28/24 19:40 Dose: 5 mg Documented By: MARK Coding [place] [address] IN/OBS CONSULT LVL 3,45M Patient Type Established Medical Decision Making Moderate Complexity Diagnoses Dementia with behavioral disturbance F03.918
[2024-03-04] MEDS ORDERED: OLANZapine 10 MG/2.1 ML SDV IM PRN (14:33)
--- NOTE | 2024-03-04 14:37 | Hospitalist Progress Note ---
Date of Service March 04, 2024 Assessment & Plan (1) Confusion: Plan: Acute on chronic encephalopathy: Patient has a history of dementia, which seems to have been worsening over the past several months Brought to the hospital on account of worsening confusion. CT scan of the head is unremarkable, no evidence of infection anyway. Plan is placement because patient is no longer able to take care of himself (2) Agitation: Plan: Patient often gets agitated during late evening's or night This could be due to sundowning. Will try to use non Pharmacological methods as much as possible We can use soft restraints like mitts or one-on-one Redirection by family member also very helpful Consulted psychiatry Patient has been started on scheduled doses of Zyprexa along with some as needed doses. (3) Hypertension: Plan: Blood pressure was rather low this morning. This could have been a result of the medications that he received overnight. Held a.m. meds. (4) Dementia: Plan: Worsening dementia Follows up with PCP who also noticed that his dementia seems to be worse Patient will need placement. (5) Other stressful life events affecting family and household: Plan Awaiting placement Admission and Anticipated Discharge Date Admission Date: February 29, 2024 Subjective Patient is sleeping. He was agitated through the night, requiring IM Zyprexa, Haldol. Review of Systems Review of Systems: Unobtainable due to cognitive status Physical Exam Physical Exam: General: Sleeping. Did not wake him up. Heart: S1, S2/regular rate and rhythm, no murmur rubs or gallops Lungs: Clear to auscultation bilaterally. Normal effort Abdomen: Soft/nontender/nondistended. No hepatosplenomegaly Extremities: No clubbing/cyanosis. No edema Behavior: Unable to assess at this time as he is sleeping Results & Data Results & Data Vital Signs (Past 12 Hours) Vital Signs Pulse Resp BP Pulse Ox O2 Del Method 03/04/24 08:45 85 17 88/53 L 95 Room Air 03/04/24 08:30 Room Air PG Care Time/CCT Total # of Minutes Spent Total Time Spent with Patient: Total time spent is greater than 50% in coordination of care (as documented) at patient's floor/unit and/or counseling patient: Coding Level of Care Code 96847 SUB INP/OBS CARE 2/35MIN Diagnoses Confusion R41.0 Agitation R45.1 Hypertension, unspecified type I10 Hypertension type: unspecified Dementia F03.90 Other stressful life events affecting family and household Z63.79 (3) Hypertension Hypertension type: unspecified Qualified Code(s): I10 - Essential (primary) hypertension
[2024-03-04] MEDS: OLANZapine 5 MG TABLET PO SCH (21:46)
[2024-03-05] MEDS: OLANZAPINE 2.5 MG TAB PO SCH (14:53)
--- NOTE | 2024-03-06 15:31 | Hospitalist Progress Note ---
Date of Service March 06, 2024 Assessment & Plan (1) Confusion: Plan: Acute on chronic encephalopathy: Patient has a history of dementia, which seems to have been worsening over the past several months Brought to the hospital on account of worsening confusion. CT scan of the head is unremarkable, no evidence of infection anyway. Plan is placement because patient is no longer able to take care of himself (2) Agitation: Plan: Patient often gets agitated during late evening's or night This could be due to sundowning. Will try to use non Pharmacological methods as much as possible We can use soft restraints like mitts or one-on-one Redirection by family member also very helpful Consulted psychiatry Patient has been started on scheduled doses of Zyprexa along with some as needed doses. (3) Hypertension: Plan: Blood pressure stable (4) Dementia: Plan: Worsening dementia Follows up with PCP who also noticed that his dementia seems to be worse Patient will need placement. (5) Other stressful life events affecting family and household: Plan Awaiting placement Admission and Anticipated Discharge Date Admission Date: February 29, 2024 Subjective Patient is cooperative. No new complaints. Review of Systems Review of Systems: All systems reviewed & are unremarkable except as noted in Subjective Physical Exam Physical Exam: General: Awake, conversant, pleasant. Confused Heart: S1, S2/regular rate and rhythm, no murmur rubs or gallops Lungs: Clear to auscultation bilaterally. Normal effort Abdomen: Soft/nontender/nondistended. No hepatosplenomegaly Extremities: No clubbing/cyanosis. No edema Behavior: Appropriate, cooperative. Results & Data Results & Data Vital Signs (Past 12 Hours) Vital Signs Temp Pulse Resp BP Pulse Ox O2 Del Method 03/06/24 15:04 36.3 C L 72 17 118/69 97 Room Air 03/06/24 08:00 Room Air 03/06/24 07:54 36.3 C L 66 16 138/75 97 Room Air PG Care Time/CCT Total # of Minutes Spent Total Time Spent with Patient: Total time spent is greater than 50% in coordination of care (as documented) at patient's floor/unit and/or counseling patient: Coding Level of Care Code 19951 SUB INP/OBS CARE 2/35MIN Diagnoses Confusion R41.0 Agitation R45.1 Hypertension, unspecified type I10 Hypertension type: unspecified Dementia F03.90 Other stressful life events affecting family and household Z63.79 (3) Hypertension Hypertension type: unspecified Qualified Code(s): I10 - Essential (primary) hypertension
[2024-03-06] MEDS: OLANZAPINE 2.5 MG TAB PO PRN (23:04)
--- NOTE | 2024-03-07 14:35 | Hospitalist Progress Note ---
Date of Service March 07, 2024 Assessment & Plan (1) Confusion: Plan: Acute on chronic encephalopathy: Patient has a history of dementia, which seems to have been worsening over the past several months Brought to the hospital on account of worsening confusion. CT scan of the head is unremarkable, no evidence of infection anyway. Plan is placement because patient is no longer able to take care of himself (2) Agitation: Plan: Patient often gets agitated during late evening's or night This could be due to sundowning. Will try to use non Pharmacological methods as much as possible We can use soft restraints like mitts or one-on-one Redirection by family member also very helpful Consulted psychiatry Patient has been started on scheduled doses of Zyprexa along with some as needed doses. (3) Hypertension: Plan: Blood pressure stable (4) Dementia: Plan: Worsening dementia Follows up with PCP who also noticed that his dementia seems to be worse Patient will need placement. (5) Other stressful life events affecting family and household: Plan Awaiting placement. Likely tomorrow Admission and Anticipated Discharge Date Admission Date: February 29, 2024 Subjective Patient continues to do well. Requiring off and on sitter. Review of Systems Review of Systems: All systems reviewed & are unremarkable except as noted in Subjective Physical Exam Physical Exam: General: Awake, conversant, pleasant. Confused Heart: S1, S2/regular rate and rhythm, no murmur rubs or gallops Lungs: Clear to auscultation bilaterally. Normal effort Abdomen: Soft/nontender/nondistended. No hepatosplenomegaly Extremities: No clubbing/cyanosis. No edema Behavior: Appropriate, cooperative. Results & Data Results & Data Vital Signs (Past 12 Hours) Vital Signs Temp Pulse Resp BP Pulse Ox O2 Del Method 03/07/24 09:08 36.6 C 82 19 110/61 94 Room Air 03/07/24 08:30 Room Air PG Care Time/CCT Total # of Minutes Spent Total Time Spent with Patient: Total time spent is greater than 50% in coordination of care (as documented) at patient's floor/unit and/or counseling patient: Coding Level of Care Code 98423 SUB INP/OBS CARE 2/35MIN Diagnoses Confusion R41.0 Agitation R45.1 Hypertension, unspecified type I10 Hypertension type: unspecified Dementia F03.90 Other stressful life events affecting family and household Z63.79 (3) Hypertension Hypertension type: unspecified Qualified Code(s): I10 - Essential (primary) hypertension
--- NOTE | 2024-03-08 14:08 | Hospitalist Progress Note ---
Date of Service March 08, 2024 Assessment & Plan (1) Confusion: Plan: Acute on chronic encephalopathy: Patient has a history of dementia, which seems to have been worsening over the past several months Brought to the hospital on account of worsening confusion. CT scan of the head is unremarkable, no evidence of infection anyway. Plan is placement because patient is no longer able to take care of himself (2) Agitation: Plan: Patient often gets agitated during late evening's or night This could be due to sundowning. Will try to use non Pharmacological methods as much as possible We can use soft restraints like mitts or one-on-one Redirection by family member also very helpful Consulted psychiatry Patient has been started on scheduled doses of Zyprexa along with some as needed doses. (3) Hypertension: Plan: Blood pressure stable (4) Dementia: Plan: Worsening dementia Follows up with PCP who also noticed that his dementia seems to be worse Patient will need placement. (5) Other stressful life events affecting family and household: Plan Awaiting placement. Per CM, will need to be off of sitter Admission and Anticipated Discharge Date Admission Date: February 29, 2024 Subjective Patient appears restless. Needing 1:1 sitter. No prn meds used Review of Systems Review of Systems: All systems reviewed & are unremarkable except as noted in Subjective Physical Exam Physical Exam: General: Awake, conversant, pleasant. Confused. Restless Heart: S1, S2/regular rate and rhythm, no murmur rubs or gallops Lungs: Clear to auscultation bilaterally. Normal effort Abdomen: Soft/nontender/nondistended. No hepatosplenomegaly Extremities: No clubbing/cyanosis. No edema Behavior: Appropriate, cooperative. Results & Data Results & Data Vital Signs (Past 12 Hours) Vital Signs Temp Pulse Resp BP Pulse Ox O2 Del Method 03/08/24 07:10 36.8 C 74 17 115/68 95 Room Air PG Care Time/CCT Total # of Minutes Spent Total Time Spent with Patient: Total time spent is greater than 50% in coordination of care (as documented) at patient's floor/unit and/or counseling patient: Coding Level of Care Code 24527 SUB INP/OBS CARE 2/35MIN Diagnoses Confusion R41.0 Agitation R45.1 Hypertension, unspecified type I10 Hypertension type: unspecified Dementia F03.90 Other stressful life events affecting family and household Z63.79 (3) Hypertension Hypertension type: unspecified Qualified Code(s): I10 - Essential (primary) hypertension
--- NOTE | 2024-03-09 10:14 | Discharge Summary ---
Date of Service March 09, 2024 Admission HPI Per Admitting Provider Sohan Armenta is a pleasant 83yo male with history of CAD, HTN, HLP, GERD, CKD and Dementia presenting from home with report of increased agitation and aggression. Patient lives with his friend, Claritza, in a home. She brought him in today due to reported increased agitation. During my encounter patient with no acute complaints. He does not know why he is here in the hospital. He does not recall becoming confused. He is oriented to person and place but not to date. 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 ER Course: Prazosin 5mg po Admission Exam Per Admitting Provider General: patient resting comfortably, NAD, non-toxic in appearance, AA&O x 2 Skin: warm, dry, intact, no rashes or lesions HEENT: NC/AT, PERRL, EOMI, anicteric sclera, conjunctiva without injection, external ear normal to inspection and nontender, nares patent, moist mucus membranes, dentition intact, no oropharyngeal lesions, neck supple, trachea midline, no LAD, no thyromegaly, no JVD Heart: +S1/S2, regular, no m/r/g Lungs: equal air entry bilaterally, no rales/rhonchi/wheezes Abd: +BS, soft, NT/ND, no masses/organomegaly/ascites Ext: warm, 2+ pulses in UE/LE bilaterally, no clubbing/cyanosis or edema Neuro: nonfocal, patient AA&O x 2, speech intact, no facial droop, moving all extremities on command with equal strength 5/5 Principal Diagnosis Dementia with agitation Discharge Exam General: Awake, conversant, pleasant. Confused. Restless Heart: S1, S2/regular rate and rhythm, no murmur rubs or gallops Lungs: Clear to auscultation bilaterally. Normal effort Abdomen: Soft/nontender/nondistended. No hepatosplenomegaly Extremities: No clubbing/cyanosis. No edema Behavior: Appropriate, cooperative. Discharge Data Allergies Allergy/AdvReac Type Severity Reaction Status Date / Time aspirin Allergy Unknown Unknown Verified 02/27/24 21:12 Corticosteroids Allergy Unknown Unknown Verified 02/27/24 21:12 (Glucocorticoids) [id number] Reductase AdvReac Unknown Unknown Verified 02/27/24 21:12 Inhibitor Consultations 02/27/24 22:33 ED Decision to Admit Stat 03/04/24 07:37 Consult Psychiatry Routine Ordered Studies 02/27/24 20:10 CT head/brain wo con Stat Hospital Course (1) Confusion: Acute on chronic encephalopathy: Patient has a history of dementia, which seems to have been worsening over the past several months Brought to the hospital on account of worsening confusion. CT scan of the head is unremarkable, no evidence of infection anyway. Plan is placement because patient is no longer able to take care of himself (2) Agitation: Patient often gets agitated during late evening's or night This could be due to sundowning. Consulted psychiatry Patient has been started on scheduled doses of Zyprexa along with some as needed doses. (3) Hypertension: Blood pressure stable (4) Dementia: Worsening dementia Follows up with PCP who also noticed that his dementia seems to be worse Patient will need placement. (5) Other stressful life events affecting family and household: Plan Discharge today Total Time Total Time Spent Total Time Spent (In Minutes): 35 Discharge Plan Discharge Items Patient Disposition: Transfer Longterm Fac Reason For Visit: CONFUSION, AGITATION Discharge Diagnosis: Dementia with agitation Activity: Resume your previous activity Non-emergency contact: Primary Care Provider Call non-emergency contact if: you have any medication questions and your symptoms worsen Follow-up/Referrals: Tony Bella, [Primary Care Provider] - Diet: Heart Healthy Addtl Attending Provider Instructions: Advised to follow-up with PCP in 1 week Pending Studies at Discharge: No Stand-Alone Forms: My [facility] Skilled Items Patient informed of condition?: Yes DNR: No Discharge Level of Care: Skilled Communicable Disease: No Discharge Prognosis: Stable Lines: None Urinary Catheter: No Medications and DC Order Prescriptions: New olanzapine 5 mg Tablet 5 mg PO HS 30 Days Qty: 30 0RF olanzapine 2.5 mg Tablet 2.5 mg PO QAM 30 Days Qty: 30 0RF Continued metoprolol succinate 50 mg tablet extended release 24 hr 50 mg PO DAILY Qty: 90 3RF aspirin [Adult Low Dose Aspirin] 81 mg tablet,delayed release (DR/EC) 81 mg PO DAILY multivitamin tablet 1 tab PO DAILY prazosin 5 mg capsule 5 mg PO QPM acetaminophen [Tylenol Extra Strength] 500 mg tablet 1,000 mg PO Q8H PRN (Reason: Pain) atorvastatin 40 mg tablet 20 mg PO DAILY (DME) Oxygen Home Liters Per Minute See Rx Instructions .ROUTE .MEDSUPPLY Qty: 2 0RF Rx Instructions: 2 l via nc at all times lisinopril 20 mg tablet 40 mg PO DAILY cholecalciferol (vitamin D3) 25 mcg (1,000 unit) capsule 25 mcg PO DAILY famotidine 40 mg tablet 40 mg PO DAILY Qty: 90 3RF Discharge Orders: Discharge Order (Routine); Ordered 03/09/24 Ordered By: Cruz Valentino/Other Patient Handouts: Olanzapine Oral Tablet Admission Data Admit Date/Time: 02/29/24 13:55 Attending Provider: Cruz Grubbs Admit Provider: Kristin Kaminski Primary Care Provider: Tony Bella Other Providers: Krsitin Kaminski; Nicholas Mack [facility]; [place],[facility]; Catie Gomez; Reji Victor; Elroy Rhodes Jr; Nuria Sahni; Leny Hodge; Giuliano So Other Interventions: Discharge Summary Assessment (RN) Last Done: 03/09/24 12:00 Coding Level of Care Code 84326 INP/OBS DISCH >30 MIN Diagnoses Confusion R41.0 Agitation R45.1 Hypertension, unspecified type I10 Hypertension type: unspecified Dementia F03.90 Other stressful life events affecting family and household Z63.79
== END 2024-03-09 14:28 | DRG 884 ==
LOC: ED 20:02 → 3W 20:02 → SUATTDRO 22:34 → 3W 23:50 → SUATTDRO 02-29 13:55